=== PATIENT | female | born 1965 | race Caucasian/White ===

== ENCOUNTER 2020-01-23 02:57 | Observation (INO) | payer SELFPAY ==
[~2020-01-23] VITALS: Ht 167.6 cm; Wt 80.7 kg
[2020-01-23] MEDS ORDERED: LEVAQUIN750 MG PO (03:03)
[2020-01-23] MEDS ORDERED: LIPITOR20 MG PO (03:04)
[2020-01-23] MEDS ORDERED: COREG12.5 MG PO ×2 (03:04→05:08)
[2020-01-23] MEDS ORDERED: BAYER CHEWABLE81 MG PO (03:04)
[2020-01-23] MEDS ORDERED: PLAVIX75 MG PO (03:05)
[2020-01-23] MEDS ORDERED: KLONOPIN0.5 MG PO (03:05)
[2020-01-23] MEDS ORDERED: DEPAKOTE500 MG PO (03:05)
[2020-01-23] MEDS ORDERED: LASIX40 MG PO (03:08)
[2020-01-23] MEDS ORDERED: CARDURA1 MG PO (03:08)
[2020-01-23] MEDS ORDERED: FAMOTIDINE10 MG PO (03:08)
[2020-01-23] MEDS ORDERED: ISOSORBIDE MONO30 M1 PO (03:09)
[2020-01-23] MEDS ORDERED: SEROQUEL25 MG PO (03:09)
[2020-01-23] MEDS ORDERED: RANEXA1000 MG PO (03:09)
[2020-01-23] MEDS ORDERED: ATIVAN0.5 MG PO (03:10)
[2020-01-23] MEDS ORDERED: EFFEXOR25 MG PO (03:11)
[2020-01-23 08:34] VITALS: Ht 167.6 cm; Wt 80.7 kg
[2020-01-23 21:12] VITALS: BP 134/81
== END 2020-01-23 23:55 | disposition home or self-care (01) ==
LOC: D.ER 02:57 → D.M2 04:21 → OBSVTIME 04:21 → D.M2 04:21
PROVIDERS: ADMIT Family Medicine; ATTEND Family Medicine
DX: I25.110 Atherosclerotic heart disease of native coronary artery with unstable angina pectoris (principal); I42.9 Cardiomyopathy, unspecified; D64.9 Anemia, unspecified; J44.9 Chronic obstructive pulmonary disease, unspecified; Z86.73 Personal history of transient ischemic attack (TIA), and cerebral infarction without residual deficits; E78.5 Hyperlipidemia, unspecified; E11.65 Type 2 diabetes mellitus with hyperglycemia; M06.9 Rheumatoid arthritis, unspecified

== ENCOUNTER 2020-01-26 04:12 | Inpatient (IN) | payer MEDICAID ==
[2020-01-26] VITALS (11 sets, daily range): BP systolic 126–188; BP diastolic 64–106; BMI 29.3
[~2020-01-26] VITALS: Ht 167.6 cm; Wt 81.3 kg
--- NOTE | ~2020-01-26 | HEMODYNAMI ---
PATIENT:ROBYN MENJIVAR MEDICAL RECORD: [id number] : 65 LOCATION:D.MS [id number] ADMISSION DATE: 01/26/20 Generatedon:01/28/202010:21 Patient name: ROBYN MENJIVAR Patient #: [id number] SSN: [id number] : 1965 Date of study: 01/28/2020 Page: Of Hemodynamic Procedure Report Patient Data Patient Demographics Procedure consent was obtained First Name: ROBYN Gender: Female Last Name: OTTO : 1965 Middle Initial: E Age: 54 year(s) Patient #: [id number] Race: SSN: [id number] Additional ID: [id number] Contact details Address: [place] [address] State: [place] City: [place] Zip code: [address] Past Medical History Allergies Allergen Reaction Date Comments Reported Other 01/23/2020 PROVOCAL/TOMATOES/OXYCODONE allergy HCL(PERCOCET)/PENICILLINS/ SEE LIST Admission Admission Data Admission Date: 01/26/2020 Admission Time: 5:05 Arrival Date: 01/28/2020 Arrival Time: 5:05 Admit Source: Other Insurance Payor: Medicaid Room #: D.2202 [facility] #: [id number] Height (in.): 65.75 BSA: 1.91 (m2) Height (cm.): 167 BMI: 29.4 (kg/m2) Weight (lbs.): 180.78 Weight (kg.): 82 Lab Results Lab Result Date: 01/23/2020 Lab Result Time: 0:00 Biochemistry Name Units Result Min Max BUN mg/dl 15 --(--*-)-- 7 18 CK-MB ng/ml 0.9 --(*---)-- 0 3.6 Creatinine mg/dl 1 --(--*-)-- 0.6 1.3 eGFR ml/min 61.24135 *-(----)-- 90 120 NONAFRICAN Troponin l ng/ml 0.017 --(-*--)-- 0 0.06 CBC Name Units Result Min Max Hematocrit % 36.3 *-(----)-- 42 54 Hemoglobin g/dl 11.8 *-(----)-- 13.5 17.5 Procedure Procedure Types Cath Procedure Diagnostic Procedure JOCELYN Procedure Description Procedure Date Procedure Date: 01/28/2020 Procedure Start Time: 10:04 Procedure End Time: 10:14 Procedure Staff Name Function Brad Sesay MD Performing Physician Jacinta Rolon RT Monitor Ceasar Lacy RN Nurse Sarah Olvera Care Support Representative Zak Chamorro CRNA Additional personnel Procedure Data Cath Procedure Estimated blood loss: 5 ml Procedure Complications No complications Procedure Medications Medication Administration Route Dosage Oxygen etCO2 Nasal cannula 3 l/min Hurricaine Boncarbo P.O. 1 Sprays Refer to Anesthesia Notes for Sedation Medications 0.9% NaCl I.V. 50 ml/hr Hemodynamics Rest BSA: 1.91 (m2) HGB: 11.8 (g/dl) O2 Consumption: Estimated: 259.76 (ml/min) O2 Consumption indexed: Estimated:136 (ml/min/m) Snapshots Pre Cath Intra NCS Post Cath Vital Signs Time Heart Resp SPO2 etCO2 NIBP (mmHg) Rhythm Pain Sedation Rate (ipm) (%) (mmHg) Status Level (bpm) 10:02:22 104 18 94 0 130/86(113) NSR 0 (11) 10(A) , No pain 10:06:30 96 20 96 8.2 112/78(86) NSR 0 (11) 9(A) , No pain 10:10:30 99 12 99 36.7 122/85(97) NSR 0 (11) 9(A) , No pain 10:14:36 87 15 100 23.2 124/78(91) NSR 0 (11) 10(A) , No pain 10:18:13 83 26 99 38.9 118/73(85) NSR 0 (11) 10(A) , No pain Medications Time Medication Route Dose Verified Delivered Reason Notes Effectiv eness by by 10:00:59 0.9% NaCl I.V. 50 Brad Mcdonough Per ml/hr St Vin Lacy RN physician 10:04:11 Oxygen etCO2 3 Brad Mcdonough used for Nasal l/min St Vin Lacy RN procedure cannula 10:04:19 Hurricaine P.O. 1 Brad Mcdonough Per Boncarbo Sprays St Vin Lacy RN physician 10:04:23 Refer to Brad Mcdonough Anesthesia St Vin Lacy RN Notes for MD Sedation Medications Procedure Log Time Note 9:35:40 Informed consent obtained and on chart 9:35:45 Diagnostic Cath Status : Urgent 9:37:15 Arrival Date: 01/28/2020 5:05:00 AM 9:37:30 Admit Source: Other 9:37:34 Insurance Payor : Medicaid 9:37:46 Patient Height : 65.75 inches 9:37:49 Patient Weight : 180.78 lbs 9:37:58 Procedure Status JOCELYN. 9:38:00 Ceasar Lacy RN sent for patient. Start room use. 9:38:01 Time tracking: Regular hours (M-F 7:00 - 5:00) 9:38:05 Plan of Care:Hemodynamics will remain stable., Cardiac rhythm will remain stable., Comfort level will be maintained., Respiratory function will remain adequate., Patient/ family verbilizes understanding of procedure., Procedure tolerated without complication., Recovers from procedure without complications.. 9:56:30 Patient received from Med/Surg to CCL 2 Alert and oriented. Tansferred to table in Supine position. 9:56:31 Warm blankets applied, and ridge hugger turned on for patient comfort. 9:56:31 Correct patient and procedure confirmed by team. 9:56:32 ECG and BP/O2 sat monitors applied to patient. 10:00:46 Baseline sample Acquired. 10:00:46 Vital chart was started 10:00:54 Full Disclosure recording started 10:00:57 H&P Date Dictated: 01/28/2020 New H&P dictated by physician.. 10:00:59 0.9% NaCl 50 ml/hr I.V. was administered by Ceasar Lacy RN; Per physician; Verbal order read back and verified. 10:01:01 Pre-procedure instructions explained to patient. 10:01:02 Pre-op teaching completed and patient verbalized understanding. 10:01:04 Family unavailable. 10:01:05 Patient NPO since Midnight. 10:01:08 Is the patient allergic to Iodine/contrast media? No. 10:01:11 Was the patient premedicated? No 10:02:05 Is patient on blood thinner?No 10:02:06 Patient diabetic? No. 10:02:08 Previous problem with sedation/anesthesia? No ? 10:02:09 Snore? Yes 10:02:11 Sleep apnea? No 10:02:13 Deviated septum? No 10:02:14 Opens mouth fully? Yes 10:02:15 Sticks out tongue? Yes 10:02:20 Airway obstruction? Yes copd asthma 10:02:23 Dentures? No ? 10:02:31 Patient pain scale 0/10 ?. 10:02:35 IV patent on arrival in left forearm with 0.9% NaCl at [facility]. 10:02:39 Lab results completed and on chart. 10:02:45 Alarms reviewed by RStuart N. 10:02:46 Sharps counted by scrub and verified by R.N. 10:02:47 Physician arrived 10:02:48 --------ALL STOP TIME OUT------ 10:02:48 Final Timeout: patient, procedure, and site verified with staff and physician. All members of the team are in agreement. 10:02:59 Fire Safety Assessment: A--An alcohol-based skin anteseptic being used preoperatively., C--Open oxygen or nitrous oxide is being used., D--An ESU, laser, or fiber-optic light is being used. 10:03:03 Physical assessment completed. ASA score P 2 - A patient with mild systemic disease as per Bard Sesay MD. 10:03:07 Sedation plan: TIVA Medication:Propofol 10:03:22 Zak Chamorro CRNA present and monitoring patient for TIVA. 10:03:27 Sarah Olvera Commercial Journeyman Electrician present for JOCELYN. 10:04:10 Procedure started. 10:04:11 Oxygen 3 l/min etCO2 Nasal cannula was administered by Ceasar Lacy RN; used for procedure; Verbal order read back and verified. 10:04:11 JOCELYN started. 10:04:19 Hurricaine Boncarbo 1 Sprays P.O. was administered by Ceasar Lacy RN; Per physician; Verbal order read back and verified. 10:04:23 Refer to Anesthesia Notes for Sedation Medications was administered by Ceasar Lacy RN; ; Verbal order read back and verified. 10:12:50 JOCELYN completed. 10:13:20 Procedure ended.(Physican Out) 10:13:42 Sharps counted by scrub and verified by R.N. 10:13:45 Insertion/operative site no bleeding no hematoma. 10:13:50 Post procedure rhythm: unchanged. 10:13:53 Estimated blood loss: 5 ml 10:13:55 Post procedure instruction explained to patient.Patient verbalizes understanding. 10:13:55 Patient needs reinforcement of post procedure teaching. 10:14:01 Procedure and supply charges have been captured, reviewed, submitted and are correct. 10:14:07 Procedure Complication : No complications 10:14:10 Vital chart was stopped 10:14:27 JOCELYN Findings: other (see operative note) 10:14:28 Operative report dictated upon procedure completion. 10:14:29 See physician's report for complete and final results. 10:14:31 Report given to Med II. 10:14:34 Procedure ended. 10:14:34 Full Disclosure recording stopped 10:14:41 End room use (Document Last) Signature Audit [place] Stage Time Signature Unsigned Intra-Procedure 01/28/2020 Jacinta Rolon 10:21:00 AM RT(R) Intra-Procedure 01/28/2020 Ceasar Lacy RN 10:21:17 AM Intra-Procedure 01/28/2020 Brad Ruano 10:21:34 AM Vin [place] Signatures Performing Physician : Signature : Brad Sesay MD Date : Time : Monitor : Jacinta Rolon RT Signature : Date : Time : Nurse : Ceasar Lacy RN Signature : Date : Time : [place] [address] [place] [address]
[~2020-01-26 04:12] MED LIST: ATIVAN0.5 MG PO; BAYER CHEWABLE81 MG PO; CARDURA1 MG PO; COREG12.5 MG PO; DEPAKOTE500 MG PO; EFFEXOR25 MG PO; FAMOTIDINE10 MG PO; ISOSORBIDE MONO30 M1 PO; KLONOPIN0.5 MG PO; LASIX40 MG PO; LEVAQUIN750 MG PO; LIPITOR20 MG PO; PLAVIX75 MG PO; RANEXA1000 MG PO; SEROQUEL25 MG PO
[2020-01-26 04:39] LABS: BASOPHILS 0.1 % (0-2); EOSINOPHILS 2.3 % (0-7); HEMATOCRIT 35.9 % (36.0-48.0); HEMOGLOBIN 11.7 g/dL (12-16); IMMATURE GRANULOCYTES 0.2 % (0-5); LYMPHOCYTES 11.9 % (15-50); MCHC 32.6 g/dL (31.0-37.0); MCV 85.9 fL (80.0-100.0); MEAN PLATELET VOLUME 10.3 fL (7.4-10.4); MONOCYTES 6.5 % (2-11); PLATELET COUNT 140 10x3/uL (130-400); RBC 4.18 10x6/uL (4.00-5.40); RDW 14.6 % (11.5-14.5); WBC 8.7 10x3/uL (4.8-10.8)
[2020-01-26 04:48] LABS: CALC OSMOLALITY 285 mosm/kg (275-300); CARBON DIOXIDE 29.9 mmol/L (21.0-32.0); CHLORIDE - SERUM 102 mmol/L (98-107); CREATININE - SERUM 0.9 mg/dL (0.6-1.3); POTASSIUM - SERUM 3.5 mmol/L (3.5-5.1); SODIUM 137 mmol/L (136-145); UREA NITROGEN 14 mg/dL (7-18); eGFR NON AFRICAN AMERICAN 69 mL/min (90-120)
[2020-01-26 04:49] LABS: GLUCOSE 294 mg/dL (74-106)
[2020-01-26 04:56] LABS: INR 0.95 (0.85-1.17); PROTIME 12.7 SECONDS (11.6-15.0)
[2020-01-26 05:06] LABS: ALBUMIN 3.2 g/dL (3.4-5.0); ALKALINE PHOSPHATASE 215 U/L (30-120); ALT (SGPT) 53 U/L (10-68); BILIRUBIN - TOTAL 0.31 mg/dL (0.2-1.3); CKMB 1.6 U/L (0.0-3.6); CREATINE KINASE 44 UL (21-215); MAGNESIUM - SERUM 1.4 mg/dL (1.8-2.4); PROTEIN - SERUM 8.2 g/dL (6.4-8.2); THYROID STIMULATING HORMONE 18.44 uIU/mL (0.36-3.74); TROPONIN-I 0.017 ng/mL (0.000-0.060)
--- NOTE | 2020-01-26 05:24 | NUR ---
PT PLACED ON BIPAP RESP AT BEDSIDE
--- NOTE | 2020-01-26 06:19 | NUR ---
REC'D PATIENT AT 0605 FROM ER VIA STRECTHER. ON BIPAP AT 60%. DROWSY. NOT ANSWERING ALL QUESTIONS. LEFT SIDED WEAKNESS. PATIENT STATES SHE IS NOT ALLERGIC TO LISINOPRIL OR PROVOCHAL. A/O X 4.
--- NOTE | 2020-01-26 07:02 | NUR ---
PAGED DR. COLON FOR CONSULT
--- NOTE | 2020-01-26 07:16 | NUR ---
DR. COLON CALLED BACK, INFORMED OF CONSULT. [facility] REC'D.
--- NOTE | 2020-01-26 07:30 | NUR ---
REPORT RECEIVED. PT ADMITTED THIS MORNING. ON BIPAP AT 60%. RESTING QUIETLY. PT HAS IV TO LEFT FOREARM THAT IS SALINE LOCKED. PT GETS FSBS ACHS. VSS. WILL MONITOR. CALL LIGHT IN REACH.
--- NOTE | 2020-01-26 08:56 | NUR ---
PT STATED SHE HAD TO VOID. GOT ANGRY BECAUSE SHE DIDN'T WANT TO USE A BEDPAN AND IS UNABLE TO GET UP TO USE BEDSIDE COMMODE. EXPLAINED SHE COULDN'T D/T TO THE BIPAP AND HER CO2 LEVELS. PT BEGAN YELLING. STATED SHE WOULD NOT USE BEDPAN AND THAT SHE DIDN'T WANT TO "PEE ON HERSELF." TOLD HER WE COULD DO THE BEDPAN OR I COULD PLACE A CATHETER. SHE AGREED TO THE CATHETER. [address]. IMMEDIATE LIGHT YELLOW RETURN. SPECIMEN COLLECTED AND SENT TO LAB. PT THEN BEGAN YELLING ABOUT WANTING TO DRINK. EXPLAINED TO PT AND HER THAT SHE CAN'T DRINK WHILE ON THE BIPAP, THAT IT NEEDS TO CURRENTLY STAY ON AT ALL TIMES. AT THIS POINT, THE CONTINUES TO GIVE PT A DRINK OF WATER, THEN PROCEEDS TO TELL ME THAT HIS WILL RIP THE BIPAP OFF AND SOMEHOW GET TO THE SINK TO DRINK WATER FROM THERE IF HE DOES NOT LET HER HAVE DRINK. WILL CONTINUE TO MONITOR.
[2020-01-26 09:07] LABS: UDS - AMPHET NEGATIVE QUAL (NEGATIVE); UDS - BARB NEGATIVE QUAL (NEGATIVE); UDS - BENZO NEGATIVE QUAL (NEGATIVE); UDS - COCAINE NEGATIVE QUAL (NEGATIVE); UDS - OPIATE NEGATIVE QUAL (NEGATIVE); UDS - PCP NEGATIVE QUAL (NEGATIVE); UDS - THC NEGATIVE QUAL (NEGATIVE)
--- NOTE | 2020-01-26 09:11 | NUR ---
PT REFUSED TO LET THE US TECH DO HER CAROTID DOPPLERS AND ECHO. EXPLAINED THE IMPORTANCE OF THESE TESTS. PT REFUSED TO LET US TECH REPOSITION HER.
[2020-01-26 09:14] LABS: BILIRUBIN NEGATIVE (NEGATIVE); GLUCOSE 250 mg/dL (NEGATIVE); KETONE NEGATIVE (NEGATIVE); NITRITE NEGATIVE (NEGATIVE); SPECIFIC GRAVITY 1.005 (1.005-1.020); UROBILINOGEN NORMAL (NORMAL)
--- NOTE | 2020-01-26 10:43 | NUR ---
DR COLON ROUNDING ON PT.
--- NOTE | 2020-01-26 10:54 | NUR ---
ATTEMPTED TO START BREATHING TREATMENT ON PATIENT. WHEN I INFORMED PATIENT THAT THE DOCTOR HAS ORDERED SHE YELLED AT ME SHE WAS NOT GOING TO DO BECAUSE EVERY BREATHING TREATMENT MAKES HER ANTSY. PATIENT HAS BEEN NONCOMPLIANT WITH SEVERAL OTHER ORDERS. IS AWARE OF SITUATION
--- NOTE | 2020-01-26 11:00 | NUR ---
PT REFUSING ALL BREATHING TREATMENTS
--- NOTE | 2020-01-26 11:02 | NUR ---
FROM NEURO STANDPOINT, PT CAN TRANSFER OUT OF ICU (PER DR COLON).
--- NOTE | 2020-01-26 12:16 | NUR ---
DR DARY MONTOYA ON PT.
--- NOTE | 2020-01-26 12:25 | NUR ---
CAROTID DOPPLERS BEING DONE. DR FOOTE STATED PT CAN TRANSFER TO FLOOR FROM RESP PERSPECTIVE. RELAYED INFORMATION TO DR SANTAMARIA.
--- NOTE | 2020-01-26 14:15 | NUR ---
UPDATE GIVEN TO DR. COLON, NEW ORDERS RECIEVED
--- NOTE | 2020-01-26 14:52 | NUR ---
PT RECEIVED TO ROOM 2201 FROM ICU VIA W/C. RESP SHALLOW, PT VOICES "I'M A LITTLE SHORT OF BREATH." PT MOOD LIGHT, LAUGHING AND COMMUNICATING WITH STAFF. DENIES PAIN AT THIS TIME. SALINE LOC TO LEFT AC, SITE WITHOUT REDNESS OR EDEMA. F/C PATENT TO GRAVITY. ORIENTED TO ROOM, BED AND CALL LIGHT. CL WITHIN REACH. ENCOURAGED TO CALL WITH NEEDS.
--- NOTE | 2020-01-26 17:30 | NUR ---
PT C/O OF PAIN WITH F/C. F/C DISCONTINUED PER MD ORDERS. PT VOIDED AND HAD BM AFTER DISCONTINUING.
--- NOTE | 2020-01-26 17:33 | NUR ---
MUNOZ REMOVED. TOLERATED WELL. 9.5 RX FROM [facility]
--- NOTE | 2020-01-26 23:45 | NUR ---
CALLED RAPID RESPONSE. PATIENT COMPLAINING OF CHEST AND JAW PAIN, SOB. PT SITTING UP IN CHAIR VERY ANXCIOUS. BIPAP PLACED ON PT. STATES SHE CANT BREATH. PT STATES SHE IS ALERGIC TO NTG. ARA NOTIFIED. EKG DONE.
[2020-01-27] VITALS: BP 138/70
--- NOTE | 2020-01-27 | NUR ---
UZIEL BULLOCK NOTIFIED OF PATIENT HAVING CHEST PAIN. PATIENT STATES SHE IS ALLERGIC TO NTG, ARA AWARE. EKG ORDERED ALONG WITH CXR AND LAB. UZIEL BULLOCK STATED SHE WOULD BE BY TO SEE PATIENT.
[2020-01-27 00:42] LABS: CKMB 1.2 U/L (0.0-3.6); CREATINE KINASE 48 UL (21-215); PHENYTOIN (DILANTIN) 0.6 ug/mL (10.0-20.0)
[2020-01-27 00:44] LABS: TROPONIN-I < 0.017 ng/mL (0.000-0.060)
--- NOTE | 2020-01-27 03:40 | NUR ---
WENT TO GIVE PATIENT 0.5MG ATIVAN PO. PATIENT REFUSED TO TAKE IT AND STATED, "TAKE IT, I DON'T WANT THAT SHIT. CALL THE DOCTOR AND TELL HER I'M PISSED." WASTED THE 0.5MG TABLET OF ATIVAN.
[2020-01-27 04:40] VITALS: BP 143/87
[2020-01-27 06:48] LABS: BASOPHILS 0.3 % (0-2); EOSINOPHILS 2.7 % (0-7); HEMATOCRIT 33.2 % (36.0-48.0); HEMOGLOBIN 10.7 g/dL (12-16); IMMATURE GRANULOCYTES 0.3 % (0-5); LYMPHOCYTES 36.6 % (15-50); MCH 27.7 pg (26.0-34.0); MCHC 32.2 g/dL (31.0-37.0); MEAN PLATELET VOLUME 10.8 fL (7.4-10.4); MONOCYTES 6.4 % (2-11); NEUTROPHILS 53.7 % (40-80); PLATELET COUNT 122 10x3/uL (130-400); RBC 3.86 10x6/uL (4.00-5.40); WBC 6.6 10x3/uL (4.8-10.8)
--- NOTE | 2020-01-27 06:50 | NUR ---
ALERT AND ORIENTED, RESTING IN BED. C/O PAIN. NO S/S OF ACUTE DISTRESS NOTED. ON 3L O2, NC. USES BIPAP AT NIGHT. IV TO LEFT AC, SL. SITE PATENT WITHOUT REDNESS OR SWELLING. DENIES ANY NEEDS AT THIS TIME. CALL LIGHT IN REACH. WILL CONTINUE TO MONITOR.
[2020-01-27 07:01] LABS: T4 THYROXINE 8.9 ug/dL (4.7-13.3)
[2020-01-27 07:03] LABS: BILIRUBIN - TOTAL 0.38 mg/dL (0.2-1.3); CALCIUM 8.6 mg/dL (8.5-10.1); CARBON DIOXIDE 28.2 mmol/L (21.0-32.0); CREATININE - SERUM 1.1 mg/dL (0.6-1.3)
[2020-01-27 07:07] LABS: CKMB 0.9 U/L (0.0-3.6); CREATINE KINASE 37 UL (21-215); TROPONIN-I 0.019 ng/mL (0.000-0.060)
[2020-01-27 07:08] LABS: ANION GAP 12.9 mmol/L (8-16); POTASSIUM - SERUM 4.1 mmol/L (3.5-5.1)
[2020-01-27 08:02] VITALS: BP 150/97
[2020-01-27 12:37] VITALS: BP 140/93
[2020-01-27 13:46] LABS: CKMB 0.9 U/L (0.0-3.6); CREATINE KINASE 35 UL (21-215); TROPONIN-I 0.021 ng/mL (0.000-0.060)
[2020-01-27 14:19] VITALS: Ht 167.6 cm; Wt 81.3 kg
[2020-01-27 17:03] VITALS: BP 127/79
--- NOTE | 2020-01-27 18:36 | NUR ---
I have reviewed this patient and I concur with the Shift Assessment completed by the Licensed Practical Nurse today this shift.
--- NOTE | 2020-01-27 18:44 | NUR ---
ALERT AND ORIENTED. C/O PAIN. GAVE DILAUDID FOR PAIN. NO S/S OF ACUTE DISTRESS NOTED. DENIES ANY NEEDS AT THIS TIME. CALL LIGHT IN REACH. WILL CONTINUE TO MONITOR.
--- NOTE | 2020-01-27 19:35 | NUR ---
A&O X 4. AMBULATES ADLIB. PT REPORTS MILD DYSPNEA. PAIN 9/10. AT BEDSIDE SCDs IN USE, CL IN REACH, CTM.
[2020-01-27 20:00] VITALS: BP 124/77
[2020-01-28] VITALS: BP 129/81
--- NOTE | 2020-01-28 02:47 | NUR ---
I have reviewed this patient and I concur with the Shift Assessment completed by the Licensed Practical Nurse today this shift.
[2020-01-28 04:00] VITALS: BP 128/87
[2020-01-28 04:24] LABS: BASOPHILS 0.2 % (0-2); EOSINOPHILS 5.1 % (0-7); HEMATOCRIT 34.6 % (36.0-48.0); IMMATURE GRANULOCYTES 0.3 % (0-5); LYMPHOCYTES 34.1 % (15-50); MCH 27.4 pg (26.0-34.0); MCHC 31.8 g/dL (31.0-37.0); MCV 86.3 fL (80.0-100.0); MEAN PLATELET VOLUME 10.8 fL (7.4-10.4); MONOCYTES 7.2 % (2-11); NEUTROPHILS 53.1 % (40-80); PLATELET COUNT 126 10x3/uL (130-400); RBC 4.01 10x6/uL (4.00-5.40); WBC 6.7 10x3/uL (4.8-10.8)
[2020-01-28 04:47] LABS: ANION GAP 10.1 mmol/L (8-16); BILIRUBIN - TOTAL 0.54 mg/dL (0.2-1.3); CALCIUM 8.5 mg/dL (8.5-10.1); CARBON DIOXIDE 30.2 mmol/L (21.0-32.0); CREATININE - SERUM 1.2 mg/dL (0.6-1.3); POTASSIUM - SERUM 4.3 mmol/L (3.5-5.1); PROTEIN - SERUM 7.5 g/dL (6.4-8.2)
[2020-01-28 09:14] VITALS: BP 126/76
[2020-01-28 13:11] LABS: IMMUNOGLOBULIN A 595 mg/dL (87-352); IMMUNOGLOBULIN G 1355 mg/dL (586-1602)
[2020-01-28 13:59] VITALS: BP 114/77
--- NOTE | 2020-01-28 14:20 | MORECARE ---
CASE MANAGEMENT DISCHARGE SUMMARY PATIENT: ROBYN MENJIVAR UNIT: [id number] ADM DATE: 01/26/20 AGE: 54 : 65 SEX: F ROOM/BED: D.2202 AUTHOR: SHANIQUE VEGA PHYSICIAN: REFERRING PHYSICIAN: FELICIA JOHNSTON MD DATE OF SERVICE: 01/28/20 Discharge Plan Patient Name: ROBYN MENJIVAR Facility: [facility]:[place] : 1965 Planned Disposition: Home or Self Care Anticipated Discharge Date: Discharge Date: Expected LOS: Initial Reviewer: [email or web address] Initial Review Date: 01/26/2020 Generated: 01/28/20 3:20 pm Patient Name: ROBYN MENJIVAR Page [phone] at 1420 All edits/amendments must be made on the electronic document DICTATION DATE: 01/28/20 142 LOCUM TENENS PSYCHIATRIST: MONO 01/28/20 1420 RPT#: [id number] DC DATE: STATUS: ADM IN [facility] [address] [place] [address] END OF REPORT
--- NOTE | 2020-01-28 14:29 | MORECARE ---
CASE MANAGEMENT DISCHARGE SUMMARY PATIENT: ROBYN MENJIVAR UNIT: [id number] ADM DATE: 01/26/20 AGE: 54 : 65 SEX: F ROOM/BED: D.2202 AUTHOR: SHANIQUE VEGA PHYSICIAN: REFERRING PHYSICIAN: FELICIA JOHNSTON MD DATE OF SERVICE: 01/28/20 Discharge Plan Patient Name: ROBYN MENJIVAR Facility: [facility]:[place] : 1965 Planned Disposition: Home or Self Care Anticipated Discharge Date: Discharge Date: Expected LOS: Initial Reviewer: [email or web address] Initial Review Date: 01/26/2020 Generated: 01/28/20 3:29 pm DCPIA - Discharge Planning Initial Assessment Updated by [email or web address]: Annette Whitfield on 01/28/20 2:28 pm * Is the patient Alert and Oriented? Yes * How many steps to enter\exit or inside your home? * PCP NONE * Pharmacy [facility] * Preadmission Environment Home with Family * ADLs Independent * Equipment Other Oxygen * Other Equipment PORTABLE AND CONCENTRATOR FROM [facility] * List name and contact numbers for known caregivers / representatives who currently or will assist patient after discharge: KYLE (SPOUSE) [phone] * Verbal permission to speak to the caregivers and representatives has been obtained from the patient. N/A * Community resources currently utilized None * Additional services required to return to the preadmission environment? Yes * Can the patient safely return to the preadmission environment? Yes * Has this patient been hospitalized within the prior 30 days at any hospital? Yes External Providers External [facility] Next Contact Date: Service Request Date: Service Type: Resolution: Reviewer: Comments: Last DP export: 01/28/20 1:20 p Patient Name: ROBYN MENJIVAR Page [phone] at 1429 All edits/amendments must be made on the electronic document DICTATION DATE: 01/28/20 142 FIBER GLASS WORKER: MONO 01/28/20 142 RPT#: [id number] DC DATE: STATUS: ADM IN [facility] [address] [place] [address] END OF REPORT
--- NOTE | 2020-01-28 14:46 | MORECARE ---
CASE MANAGEMENT DISCHARGE SUMMARY PATIENT: ROBYN MENJIVAR UNIT: [id number] ADM DATE: 01/26/20 AGE: 54 : 65 SEX: F ROOM/BED: D.2202 AUTHOR: SHANIQUE VEGA PHYSICIAN: REFERRING PHYSICIAN: FELICIA JOHNSTON MD DATE OF SERVICE: 01/28/20 Discharge Plan Patient Name: ROBYN MENJIVAR Facility: [facility]:[place] : 1965 Planned Disposition: Home or Self Care Anticipated Discharge Date: Discharge Date: Expected LOS: Initial Reviewer: [email or web address] Initial Review Date: 01/26/2020 Generated: 01/28/20 3:45 pm Comments DCP- Discharge Planning Updated by [email or web address]: Annette Whitfield on 01/28/20 1:[address] Patient Name: ROBYN MENJIVAR Admission Status: ER Accout number: [id number] Admission Date: 01-26-2020 : 1965 Admission Diagnosis:TRANSIENT CEREBRAL ISCHEMIC ATTACK, UNSPECIFIED Attending: FELICIA JOHNSTON Current LOS: 2 Anticipated DC Date: Planned Disposition: Home or Self Care Primary Insurance: MEDICAID [place] Discharge Planning Comments: CM met with patient to complete initial dc planning assessment. CM educated patient on the CM role and verbal consent given by patient to complete assessment. Patient lives at home with her spouse. They are from [facility]. At discharge patient plans to return home and feels this is a safe discharge. CM discussed availability of home health, rehab services, and medical equipment. She stated that she does not have a PCP. She has home O2, Concentrator from [facility]. I have sent them clinical trying to get her set up with a bipap/cpap/triliogy, I spoke with Sharmila at [facility]. She will need transportation home. She did not realize that she qualifies for [employer]. I called critical access hospital and spoke with miguel Loving and the patient does qualify for Transportation and they will be the one to take them home. (her spouse will also need transportation) . The Address that is on her facecheet is a PO box. The patient and spouse stated that the physical address is [address] [place] [id number]. A good telephone number for them is [phone]. Patient denied known discharge needs at this time. CM will continue to follow and will assist as needed with dc plans/needs. Pasteurizing Supervisor: Annette Whitfield DCPIA - Discharge Planning Initial Assessment Updated by [email or web address]: Annette Whitfield on 01/28/20 2:28 pm * Is the patient Alert and Oriented? Yes * How many steps to enter\exit or inside your home? * PCP NONE * Pharmacy [facility] * Preadmission Environment Home with Family * ADLs Independent * Equipment Other Oxygen * Other Equipment PORTABLE AND CONCENTRATOR FROM [facility] * List name and contact numbers for known caregivers / representatives who currently or will assist patient after discharge: KYLE (SPOUSE) [phone] * Verbal permission to speak to the caregivers and representatives has been obtained from the patient. N/A * Community resources currently utilized None * Additional services required to return to the preadmission environment? Yes * Can the patient safely return to the preadmission environment? Yes * Has this patient been hospitalized within the prior 30 days at any hospital? Yes Coverage Notice Reviewer: [id number] - Annette Whitfield Notice Issued Date-Time: 01/28/2020 14:00 Notice Type: Patient Choice Letter Notice Delivered To: Patient Relationship to Patient: Fiscal Specialist Name: Delivery Method: HAND - Hand Delivered Kimberly Days: Prior Verbal Notification: Recipient Understood Notice: Yes Recipient Signature: Yes Med Rec Note Co-signed by Attending: Coverage Notice Comment: [facility] Last DP export: 01/28/20 1:29 p Patient Name: ROBYN MENJIVAR Page [phone] at 1446 All edits/amendments must be made on the electronic document DICTATION DATE: 01/28/20 1445 PHYSICIST ASTROPHYSICS: MONO 01/28/20 1445 RPT#: [id number] DC DATE: STATUS: ADM IN [facility] [address] [place] [address] END OF REPORT
[2020-01-28 17:10] VITALS: BP 132/80
[2020-01-28 20:00] VITALS: BP 124/75
--- NOTE | 2020-01-28 23:00 | NUR ---
ENTERED ROOM IN RESPONSE TO CALL LIGHT. A&O X 4. REPORTS SEVERE CHESTPAIN AFTER JUST AMBULATING TO THE RESTROOM. TELEMETRY READING 82 NORMAL SINUS. BP 138/81, SPO2 99% ON 4L. PT SOB, DENIES ANXIETY AND REFUSING PRN ANXIETY MEDICATION, INSISTS SHE NEEDS MORE PAIN MEDICATION, STATES SHE USUALLY NEEDS DILAUDID WHILE HOSPITALIZED. ARA TRIPLETT PAGED AND NOTIFIED. INFORMED PT OF INCREASE IN PRN MORPHINE DOSE, WHEN SHE CAN HAVE IT NEXT. PT APPEARS TO BE CALMING DOWN. CTM.
--- NOTE | 2020-01-28 23:23 | NUR ---
DISCUSSED BENEFITS OF BIPAP COMPLIANCE HOWEVER PT CONTINUES TO STATE PRESSURE FROM DIVICE CAUSES PAIN IN HER CHEST NURSE NOTIFIED NASAL CANNULA IN PLACE
[2020-01-29] VITALS: BP 136/81
[2020-01-29 04:00] VITALS: BP 127/73
[2020-01-29 04:46] LABS: HEMATOCRIT 32.4 % (36.0-48.0); HEMOGLOBIN 10.6 g/dL (12-16); LYMPHOCYTES 36.9 % (15-50); MCH 28.2 pg (26.0-34.0); MCHC 32.7 g/dL (31.0-37.0); MCV 86.2 fL (80.0-100.0); MEAN PLATELET VOLUME 10.2 fL (7.4-10.4); NEUTROPHILS 53.1 % (40-80); RBC 3.76 10x6/uL (4.00-5.40); RDW 15.1 % (11.5-14.5); WBC 5.2 10x3/uL (4.8-10.8)
[2020-01-29 04:48] LABS: PLATELET COUNT 77 10x3/uL (130-400)
[2020-01-29 05:01] LABS: ANION GAP 7.4 mmol/L (8-16); BILIRUBIN - TOTAL 0.41 mg/dL (0.2-1.3); CALCIUM 8.6 mg/dL (8.5-10.1); CARBON DIOXIDE 31.7 mmol/L (21.0-32.0); CREATININE - SERUM 1.2 mg/dL (0.6-1.3); POTASSIUM - SERUM 4.1 mmol/L (3.5-5.1); PROTEIN - SERUM 7.1 g/dL (6.4-8.2)
--- NOTE | 2020-01-29 07:15 | NUR ---
SHIFT REPORT RECEIVED. KYLE IN BED WITH PATIENT. NO NEEDS AT THIS TIME. NPO FOR A PROCEDURE. CL IN REACH. WCTM
[2020-01-29 09:12] VITALS: BP 123/78
[2020-01-29 10:11] LABS: IGG SUBCLASS 1 661 mg/dL (248-810); IGG SUBCLASS 2 630 mg/dL (130-555); IGG SUBCLASS 3 90 mg/dL (15-102); IGG SUBCLASS 4 62 mg/dL (2-96); IGGS - IGG SERUM 1561 mg/dL (586-1602)
--- NOTE | 2020-01-29 11:06 | NUR ---
Nutrition follow-up/consult: Visited with pt re: consistent CHO diet Pt states she is not a diabetic and never has been. Pt with fairly well controlled glucose. Pt reports high glucose from steroids. I advised pt even if glucose was elevated due to steroids, I still had to follow diabetic diet protocol to prevent it from going higher. Pt states she loves sweets and is going to continue to eat them. I advised pt that the kitchen would not send sweets or sugary foods; however, I cannot stop her from getting them on her own. Pt with good po intake at this time Labs reviewed Pt continues to receive a consistent CHO diet and RDN will work with pt on food preferences. Wt: 180# RDN following.
[2020-01-29 13:20] VITALS: BP 111/76
--- NOTE | 2020-01-29 14:47 | NUR ---
PIV TO LEFT FA REMOVED WITH CATHETER TIP INTACT. DRESSING APPLIED. 22G PIV INSERTED TO RIGHT UPPER ARM X 1 ATTEMPT. PT TOLERATED WELL. BED IS IN THE LOWEST POSITION. CALL LIGHT AND BEDSIDE TABLE ARE WITHIN REACH. SIDE RAILS X 2. PT DENIES FURTHER NEEDS. WILL NOTIFY SHIFT NURSE OF PIV INSERTION.
--- NOTE | 2020-01-29 15:55 | NUR ---
PATIENT HAS HAD SHOWER. REAPPLIED TELEMETRY. REQUESTED AND RECEIVED PAIN MEDS PER EMAR. CL IN REACH. DELMAR IN BED WITH PATIENT. ALEXIA
[2020-01-29 16:45] VITALS: BP 94/61
--- NOTE | 2020-01-29 19:20 | NUR ---
1849 KYLE CAME OUT TO NURSES STATION STATING WAS HAVING A SEIZURE. Azalea DECKER RN AND I RESPONDED. WHEN WE WENT INTO THE ROOM THE PATIENT WAS CONFUSED BUT ALERT AND TALKING. KYLE STATED THAT SHE WAS ASLEEP AND JUST STARTED JERKING LIKE CRAZY AND TRYING TO SAY HIS NAME. THEN WAS ABLE TO SAY NURSE. PATIENT WAS CONFUSED AND COULDN'T RECITE HER ENTIRE BIRTHDAY OR NAME. PATIENT WAS ANXIOUS AND BECOMING SOB DUE TO ANXIETY DOING BREATHING TECHNIQUES WITH STAFF ENCOURAGEMENT. PATIENT STARTED TO PRESENT WITH JERKING LIKE MOVEMENTS CONSISTENT WITH SEIZURE ACTIVITY. HER EYES ROLLED BACK IN HER HEAD WELL. ORDER OBTAINED FOR [address] COLON WHO IS ON HER CASE WELL ON THE FLOOR AT THIS TIME. ADMINISTERED IV PER EMAR. AFFECTIVE IMMEDIATELY. PATIENT STOPPED WITH JERKING MOVEMENTS, ABLE TO GIVE NAME, , AND TALKING APPROPRIATELY BEFORE BEING OVERTAKEN BY SLEEP. VS REMAINED STABLE DURING THIS TIME. KYLE AT BEDSIDE. CL IN REACH. [facility]
[2020-01-29 20:00] VITALS: BP 143/80
--- NOTE | 2020-01-29 20:00 | NUR ---
PATIENT RESTING IN BED WITH FAMILY AT BEDSIDE. NO S/S OF ACUTE DISTRESS. NO C/O AT THIS TIME. PATIENT IS ON 3L NASAL CANNULA. PATIENT IS ON TELEMETRY: 71 NORMAL SINUS. PATIENT HAS IV IN THE RIGHT UPPER ARM SALINE LOC. IV IS PATENT WITHOUT REDNESS, SWELLING, OR TENDERNESS. PATIENT IS LETHARGIC FROM ATIVAN DOSE FROM PRIOR ZURE ACTIVITY. PATIENT IS A STAND BY ASSIST TO THE BATHROOM. CALL LIGHT WITHIN REACH. WILL CONTINUE TO MONITOR.
--- NOTE | 2020-01-29 22:58 | NUR ---
I have reviewed this patient and I concur with the Shift Assessment completed by the Licensed Practical Nurse today this shift.
[2020-01-30] VITALS: BP 115/73
[2020-01-30 04:00] VITALS: BP 134/84
[2020-01-30 06:14] LABS: BASOPHILS 0.2 % (0-2); HEMOGLOBIN 10.3 g/dL (12-16); IMMATURE GRANULOCYTES 0.4 % (0-5); MCH 28.1 pg (26.0-34.0); MCHC 32.2 g/dL (31.0-37.0); MCV 87.4 fL (80.0-100.0); MEAN PLATELET VOLUME 10.9 fL (7.4-10.4); MONOCYTES 6.5 % (2-11); NEUTROPHILS 56.9 % (40-80); PLATELET COUNT 83 10x3/uL (130-400); RBC 3.66 10x6/uL (4.00-5.40); RDW 15.1 % (11.5-14.5); WBC 5.5 10x3/uL (4.8-10.8)
[2020-01-30 06:31] LABS: PLATELET ESTIMATE DECREASED
[2020-01-30 06:38] LABS: ANION GAP 7.8 mmol/L (8-16); BILIRUBIN - TOTAL 0.45 mg/dL (0.2-1.3); CALCIUM 8.9 mg/dL (8.5-10.1); CARBON DIOXIDE 31.3 mmol/L (21.0-32.0); CREATININE - SERUM 1.2 mg/dL (0.6-1.3); POTASSIUM - SERUM 4.1 mmol/L (3.5-5.1); PROTEIN - SERUM 7.1 g/dL (6.4-8.2)
--- NOTE | 2020-01-30 07:40 | NUR ---
PT LYING IN BED WITH SIGNIFICANT OTHER, IV IN RT UPPER ARM SL, PT HAS NC ON AT 3L, CL IN REACH, NO S/SX OF DISTRESS, EASILY AWAKENED FOR ASSESSMENT. LUNGS CTA, HR 78 SR PER MONITORS. ACTIVE BOWEL SOUNDS, PEDAL PULSE PALPABLE, NO NEEDS VOICED AT THIS TIME BY PT OR OTHER. WILL ASSUME PT CARE
--- NOTE | 2020-01-30 08:00 | NUR ---
ADMINISTERED PRN PAIN MEDICATION, PER PT CHEST HURTS, PT IS SITTING UP LAUGHING WITH SPOUSE, ADMINISTERED PRN MEDICATION WITH MORNING MEDS. NO OTHER NEEDS AT THIS TIME. CONTINUE WITH PLAN OF CARE
--- NOTE | 2020-01-30 08:51 | TEE ---
PATIENT:ROBYN MENJIVAR MEDICAL RECORD: [id number] LOCATION:[facility] AGE OF PATIENT: 54 ADMISSION DATE: 01/26/20 SEX: F REFERRING PHYSICIAN: INTERPRETING PHYSICIAN: NOEMY HAMMONDS MD TRANSESOPHAGEAL ECHOCARDIOGRAM Date: 01/28/20 JOCELYN CHARGE Y INDICATIONS: POSSIBLE RUPUTURED CHORDAE PREMEDICATIONS: PATIENT'S RESPONSE PROCEDURE DOPPLER MEASUREMENTS: LVIT LA PA 110 RA LVOT 103 RVOT 68 Asc. Ao 154 AV Gradient Peak 9.5 AV Mean 5.2 AV Area 1.5 MV Gradient Peak 13.1 MV Mean 5.1 MV Area INTERPRETATION: Doppler: 2-D: COLOR FLOW DOPPLER NORMAL SALINE STUDY: MISCELLANOUS: DIAGNOSIS: PLAN: Cover Stripper:3 Dr. Day Alteration Worker: Adamaris LIVINGSTON COMMENTS: PACS DATE OF SERVICE: 01/28/2020 PROCEDURE: Transesophageal Note DESCRIPTION OF PROCEDURE: After general sedation via TIVA via anesthesia, transesophageal Omniplane probe was placed in esophagus and proximal stomach without difficulty. LVH is present. LV internal dimensions appear upper limits of normal. LV is TRANSESOPHAGEAL ECHOCARDIOGRAM REPORT [id number] ROBYN MENJIVAR mildly globally hypo. EF is 45% to 50%. Aortic valve is tricuspid. Trivial AI by color flow imaging but good valve excursion. Left atrium appears normal. Left atrial appendage is well visualized with good contractility. Mitral valve shows almost rheumatic changes of the anterior leaflet, although this could be an atypical prolapse or healed vegetation. Multiple views were taken in this area. There is moderate severe MR at this point. Right-sided chambers appear grossly normal. Moderate TR, as seen on transthoracic views. Systolic pressures are elevated at greater than or equal to 45 mmHg. At the end of procedure, the patient had transesophageal Omniplane probe was turned posteriorly. This showed no atherosclerotic debris in the descending aorta. At the end of the procedure, the patient was monitored continuously, pulse oximetry and telemetry and blood pressure monitoring. TRANSINT:[id number] Voice Confirmation ID: [id number] DOCUMENT ID: [id number] at [id number] CC: [id number] DICTATION DATE: 01/28/20 1051 RENOVATOR MACHINE OPERATOR: 01/28/20 2146 ADM IN [facility] [id number] [place] [address]
[2020-01-30 09:08] VITALS: BP 116/74
[2020-01-30 12:15] VITALS: BP 109/59
--- NOTE | 2020-01-30 12:22 | NUR ---
I have reviewed this patient and I concur with the Shift Assessment completed by the Licensed Practical Nurse today this shift.
--- NOTE | 2020-01-30 12:37 | NUR ---
PT REQUESTED PRN PAIN MEDICATION, ADMINISTERED WITH SCHEDULED NMEDICATION, PT LYING IN BED WITH SIGNIFICANT OTHER, DOUBLE PORTION LUNCH ON TRAY NEXT TO BED, NO S/SX OF DISTRESS, CONTINUE WITH PLAN OF CARE
--- NOTE | 2020-01-30 14:46 | NUR ---
PT SIGNIFICANT OTHER AT NURSING STATION ASKING TO SPEAK WITH CARDIOLOGY, ASSURED THEM THAT WHEN I SEE DRS I WILL RELAY MESSAGE THAT THEY WOULD LIKE TO SPEAK WITH SOMEONE. NO OTHER NEEDS AT THIS TIME. CONTINUE WITH PLAN OF CARE
[2020-01-30 16:59] VITALS: BP 106/73
--- NOTE | 2020-01-30 18:14 | MORECARE ---
CASE MANAGEMENT DISCHARGE SUMMARY PATIENT: ROBYN MENJIVAR UNIT: [id number] ADM DATE: 01/26/20 AGE: 54 : 65 SEX: F ROOM/BED: D.2202 AUTHOR: GARY,DOC PHYSICIAN: REFERRING PHYSICIAN: FELICIA JOHNSTON MD DATE OF SERVICE: 01/30/20 Discharge Plan Patient Name: ROBYN MENJIVAR Facility: [facility]:[place] : 1965 Planned Disposition: Home or Self Care Anticipated Discharge Date: Discharge Date: Expected LOS: Initial Reviewer: [id number] Initial Review Date: 01/26/2020 Generated: 01/30/20 7:14 pm Comments DCP- Discharge Planning Updated by [email or web address]: Kelly Luong on 01/30/20 5:[address] DISCUSSED IN IDT MEETING. CARDIOVASCULAR SURGEON AND [place] FARMER DISCUSSING PLAN. MVR WORKUP IN PROCESS. D/C PLAVIX AND INCREASE LOVENOX. DR FOOTE ROUNDED THIS PM. STABLE FROM PULMONARY VIEW FOR SURGERY NEXT WEEK. CM SPOKE W/ [facility] X[facility]. OFERED REFAX BY SHARMILA SALOMON [facility] DID NOT REC PREVIOUS FAX FROM [facility]. REC CB THIS LATE PM AND FAX STILL NOT RECEIVED. REC MD ORDER COPY VIA FAX. PLACED ON CHART FOR SIGNATURE. NOTE LEFT FOR WEEKEND FIBER TECHNOLOGIST TO OBTAIN SIGNATURE AGAIN TO REFAX. CANNOT LOCATE INITIAL SIGNED ORDER. DCP- Discharge Planning Updated by [email or web address]: Annette Whitfield on 01/28/20 1:[address] Patient Name: ROBNY MENJIVAR Admission Status: ER Accout number: [id number] Admission Date: 01-26-2020 : 1965 Admission Diagnosis:TRANSIENT CEREBRAL ISCHEMIC ATTACK, UNSPECIFIED Attending: FELICIA JOHNSTON Current LOS: 2 Anticipated DC Date: Planned Disposition: Home or Self Care Primary Insurance: MEDICAID [place] Discharge Planning Comments: CM met with patient to complete initial dc planning assessment. CM educated patient on the CM role and verbal consent given by patient to complete assessment. Patient lives at home with her spouse. They are from [facility]. At discharge patient plans to return home and feels this is a safe discharge. CM discussed availability of home health, rehab services, and medical equipment. She stated that she does not have a PCP. She has home O2, Concentrator from [facility]. I have sent them clinical trying to get her set up with a bipap/cpap/triliogy, I spoke with Sharmila at [facility]. She will need transportation home. She did not realize that she qualifies for [facility]. I called [facility] and spoke with a Fabienne and the patient does qualify for Transportation and they will be the one to take them home. (her spouse will also need transportation) . The Address that is on her facecheet is a PO box. The patient and spouse stated that the physical address is [address] [place] [address] [place] [address]. A good telephone number for them is [phone]. Patient denied known discharge needs at this time. CM will continue to follow and will assist as needed with dc plans/needs. News Intern: Annette Whitfield DCPIA - Discharge Planning Initial Assessment Updated by [id number]: Annette Whitfield on 01/28/20 2:28 pm * Is the patient Alert and Oriented? Yes * How many steps to enter\exit or inside your home? * PCP NONE * Pharmacy [facility] * Preadmission Environment Home with Family * ADLs Independent * Equipment Other Oxygen * Other Equipment PORTABLE AND CONCENTRATOR FROM [facility] * List name and contact numbers for known caregivers / representatives who currently or will assist patient after discharge: KYLE (SPOUSE) [phone] * Verbal permission to speak to the caregivers and representatives has been obtained from the patient. N/A * Community resources currently utilized None * Additional services required to return to the preadmission environment? Yes * Can the patient safely return to the preadmission environment? Yes * Has this patient been hospitalized within the prior 30 days at any hospital? Yes Coverage Notice Reviewer: [id number] - Annette Whitfield Notice Issued Date-Time: 01/28/2020 14:00 Notice Type: Patient Choice Letter Notice Delivered To: Patient Relationship to Patient: Darklight Inspector Name: Delivery Method: HAND - Hand Delivered Kimberly Days: Prior Verbal Notification: Recipient Understood Notice: Yes Recipient Signature: Yes Med Rec Note Co-signed by Attending: Coverage Notice Comment: [facility] Last DP export: 01/28/20 1:46 p Patient Name: ROBYN MENJIVAR Page [id number] at 1814 All edits/amendments must be made on the electronic document DICTATION DATE: 01/30/201813 CIRCUIT BREAKER ASSEMBLER: MONO 01/30/201813 RPT#: [id number] DC DATE: STATUS: ADM IN [facility] [address] [place] [address] END OF REPORT
[2020-01-30 20:00] VITALS: BP 125/82
--- NOTE | 2020-01-30 20:00 | NUR ---
PATIENT RESTING IN BED WITH FAMILY AT BEDSIDE. NO S/S OF ACUTE DISTRESS. PATIENT C/O ITCHINESS ALL OVER BODY. THERE IS NO RASH THAT I CAN SEE ANYWHERE. ATIVAN WAS GIVEN. PATIENT IS ON 3L OF O2 NASAL CANNULA. IS ON TELEMETR: 74 SINUS RYTHM. PATIENT HAS RIGHT UPPER ARM IV, SALINE LOC. IV IS PATENT WITHOUT REDNESS, SWELLING, OR TENDERNESS. PATIENT IS A STAND-BY ASSIST TO THE BATHROOM. CALL LIGHT WITHIN REACH. WILL CONTINUE TO MONITOR.
--- NOTE | 2020-01-31 03:46 | NUR ---
I have reviewed this patient and I concur with the Shift Assessment completed by the Licensed Practical Nurse today this shift.
[2020-01-31 04:00] VITALS: BP 139/77
[2020-01-31 05:50] LABS: BASOPHILS 0.2 % (0-2); EOSINOPHILS 3.3 % (0-7); HEMATOCRIT 32.2 % (36.0-48.0); HEMOGLOBIN 10.2 g/dL (12-16); IMMATURE GRANULOCYTES 0.4 % (0-5); LYMPHOCYTES 37.5 % (15-50); MCH 27.6 pg (26.0-34.0); MCHC 31.7 g/dL (31.0-37.0); MEAN PLATELET VOLUME 10.4 fL (7.4-10.4); NEUTROPHILS 51.6 % (40-80); PLATELET COUNT 77 10x3/uL (130-400); RDW 15.2 % (11.5-14.5); WBC 5.4 10x3/uL (4.8-10.8)
[2020-01-31 06:24] LABS: ALBUMIN 2.9 g/dL (3.4-5.0); ANION GAP 9.8 mmol/L (8-16); BILIRUBIN - TOTAL 0.34 mg/dL (0.2-1.3); CALCIUM 8.7 mg/dL (8.5-10.1); CARBON DIOXIDE 30.3 mmol/L (21.0-32.0); CREATININE - SERUM 1.1 mg/dL (0.6-1.3); POTASSIUM - SERUM 4.1 mmol/L (3.5-5.1); PROTEIN - SERUM 6.9 g/dL (6.4-8.2)
--- NOTE | 2020-01-31 07:28 | NUR ---
PT LYING IN BED WITH SIGNIFICANT OTHER, EASILY AWAKENED FOR ASSESSMENT, IV IN RT UPPER ARM SL, PT WEARING NC AT 3L. STATES PAIN IS STILL AT A 4, PRN PAIN MEDS ADMINISTERED ABOUT 2 HOURS AGO. CL IN REACH, PT STATED SHE WAS "ITCHING REAL BAD LAST NIGHT" HAD BENADRYL AND ATIVAN TO CONTROL ITCHING PT STATED IT HELPED BUT SHE STILL WAS "ITCHING LIKE CRAZY" NO NEEDS VOICED AT THIS TIME. CONTINUE WITH PLAN OF CARE
[2020-01-31 07:54] VITALS: BP 140/90
[2020-01-31 09:10] LABS: CA 27-29 16.2 U/mL (0.0-38.6)
--- NOTE | 2020-01-31 10:01 | NUR ---
PT C/O CP THAT IS WORSE TODAY THAN HAS BEEN BUT SAME TIGHTNESS IN CHEST. PER THOM GIVE 1 TIME DOSE OF MORPHINE WITH BENEDRYL NOW AND CONTACT CARDIO. EKG SHOWS NSR AT 84. CONTINUE WITH PLAN OF CARE
--- NOTE | 2020-01-31 10:14 | NUR ---
ADMINISTERED PRN BENADRYL AND MORPHINE AND PT STATED IT OCAMPO. PT IV FLUSHED BEFORE PUSHING, FELT AT TIP IF IV SITE AND PT HAS KNOT IN AREA, PT STATED SHE IS A VERY HARD STICK AND WOULD LIKE TO HAVE MIDLINE OR PICC. PLACED ORDER FOR VASCULAR ACCESS NURSE
--- NOTE | 2020-01-31 11:11 | NUR ---
PT LYING ON LEFT SIDE ASLEEP, PLACED ITEMS IN ROOM TO RESTART IV, EXPLAINED TO PT SIGNIFICANT OTHER THAT I AM NOT GOING TO WAKE HER NOW SINCE HER MORNING WAS ROUGH BUT WE WILL ATTEMPT TO RESITE IV WHEN SHE WAKES UP. U/S OF ABD COMPLETED. NO NEEDS VOICED BY PT OR OTHER REPUBLICAN CONTINUE WITH PLAN OF CARE
[2020-01-31 12:06] VITALS: BP 127/87
--- NOTE | 2020-01-31 12:41 | NUR ---
I have reviewed this patient and I concur with the Shift Assessment completed by the Licensed Practical Nurse today this shift.
--- NOTE | 2020-01-31 13:31 | NUR ---
NO TX GIVEN PT WANTED TO SLEEP
[2020-01-31 14:09] LABS: CA125 21.4 U/mL (0.0-38.1)
[2020-01-31 17:39] VITALS: BP 113/93
--- NOTE | 2020-01-31 18:03 | NUR ---
ADMINISTERED PRN PAIN MEDICATION, PT STATED SITE IS STINGING BUT ABLE TO FLUSH. WILL CONTINUE TO MONITOR
--- NOTE | 2020-01-31 18:43 | NUR ---
PT AND SIGNIFICANT OTHER WENT FOR WALK AROUND HOSPITAL. STATED STAYING IN ROOM WAS DRIVING THEM "STIR CRAZY" NO NEEDS VOICED, CONTINUE WITH PLAN OF CARE
[2020-01-31 20:00] VITALS: BP 116/68
[2020-02-01] VITALS: BP 139/91
[2020-02-01 04:00] VITALS: BP 140/90
[2020-02-01 06:03] LABS: BASOPHILS 0.2 % (0-2); EOSINOPHILS 2.8 % (0-7); HEMATOCRIT 37.5 % (36.0-48.0); HEMOGLOBIN 12.2 g/dL (12-16); IMMATURE GRANULOCYTES 0.5 % (0-5); LYMPHOCYTES 20.9 % (15-50); MCH 28.3 pg (26.0-34.0); MCHC 32.5 g/dL (31.0-37.0); MEAN PLATELET VOLUME 11.5 fL (7.4-10.4); MONOCYTES 8.5 % (2-11); NEUTROPHILS 67.1 % (40-80); PLATELET COUNT 99 10x3/uL (130-400); RBC 4.31 10x6/uL (4.00-5.40); RDW 15.8 % (11.5-14.5); WBC 10.3 10x3/uL (4.8-10.8)
[2020-02-01 06:41] LABS: PLATELET ESTIMATE NORMAL
--- NOTE | 2020-02-01 07:22 | NUR ---
PT RESTING IN BED WITH EYES CLOSED, SIGNIFICANT OTHER LYING IN BED WITH PT. BIPAP IN PLACE AT THIS TIME. SALINE LOC TO LEFT AC, SITE WITHOUT REDNESS OR EDEMA. PT REPORTS PAIN 8/10, BUT QUICKLY FALLS BACK TO SLEEP. PT IS EASILY AROUSED BY NAME BEING CALLED. PT DENIES FURTHER NEEDS AT THIS TIME. CL WITHIN REACH. ENCOURAGED TO CALL WITH NEEDS. CONTINUE POC
[2020-02-01 08:11] LABS: BILIRUBIN - TOTAL 0.5 mg/dL (0.2-1.3); CALCIUM 8.4 mg/dL (8.5-10.1); CARBON DIOXIDE 30.6 mmol/L (21.0-32.0); POTASSIUM - SERUM 4.6 mmol/L (3.5-5.1); PROTEIN - SERUM 7.4 g/dL (6.4-8.2)
[2020-02-01 08:15] LABS: CREATININE - SERUM 1.7 mg/dL (0.6-1.3)
[2020-02-01 08:22] VITALS: BP 149/89
[2020-02-01 12:14] VITALS: BP 141/69
--- NOTE | 2020-02-01 13:12 | NUR ---
CONTACTED DR. FERGUSON PER THOM CRUZ APN AND DR. MOBLEY FOR CARDIOLOGY ROUNDING ON PT DAILY DUE TO DAILY C/O CHEST PAIN.
[2020-02-01 20:29] VITALS: BP 141/84
[2020-02-02 00:16] VITALS: BP 128/73
[2020-02-02 04:37] LABS: BASOPHILS 0.3 % (0-2); EOSINOPHILS 4.6 % (0-7); IMMATURE GRANULOCYTES 0.5 % (0-5); LYMPHOCYTES 41.9 % (15-50); MCH 27.7 pg (26.0-34.0); MCHC 31.6 g/dL (31.0-37.0); MCV 87.7 fL (80.0-100.0); MEAN PLATELET VOLUME 12.1 fL (7.4-10.4); NEUTROPHILS 44.7 % (40-80); PLATELET COUNT 80 10x3/uL (130-400); RDW 15.6 % (11.5-14.5)
[2020-02-02 05:04] LABS: HEMATOCRIT 28.5 % (36.0-48.0); RBC 3.25 10x6/uL (4.00-5.40); WBC 3.9 10x3/uL (4.8-10.8)
[2020-02-02 05:19] LABS: ALBUMIN 2.8 g/dL (3.4-5.0); BILIRUBIN - TOTAL 0.44 mg/dL (0.2-1.3); CARBON DIOXIDE 36.2 mmol/L (21.0-32.0); CREATININE - SERUM 1.6 mg/dL (0.6-1.3); PROTEIN - SERUM 6.6 g/dL (6.4-8.2)
[2020-02-02 05:21] LABS: ANION GAP 3.6 mmol/L (8-16); POTASSIUM - SERUM 3.8 mmol/L (3.5-5.1)
[2020-02-02 06:17] VITALS: BP 138/76
[2020-02-02 07:24] LABS: INR 1.11 (0.85-1.17); PROTIME 14.3 SECONDS (11.6-15.0)
[2020-02-02 07:25] LABS: APTT 55.2 SECONDS (22.8-39.4)
[2020-02-02 07:58] VITALS: BP 148/89
--- NOTE | 2020-02-02 08:00 | NUR ---
SHE STATES SHE IS STILL ITCHING. SHE IS WORRIED ABOUT ALL HER MEDICAL ISSUES, CRYING. A MALE PERSON IN SLEEPING IN THE FLOOR. THE CALL LIGHT IS WITHIN REACH. ELIZABET HAS SEEN HER THIS MORNING, INCREASE THE DOSE AND TIME TAKEN ON THE IMDUR.
[2020-02-02 12:58] VITALS: BP 130/76
--- NOTE | 2020-02-02 13:40 | NUR ---
GONE FOR A BONE MARROW BX WITH CT.
[2020-02-02 15:11] LABS: HEPARIN INDUCED PLATELET AB 0.152 OD (0.000-0.400)
--- NOTE | 2020-02-02 16:33 | MORECARE ---
CASE MANAGEMENT DISCHARGE SUMMARY PATIENT: ROBYN MENJIVAR UNIT: [id number] ADM DATE: 01/26/20 AGE: 54 : 65 SEX: F ROOM/BED: D.2202 AUTHOR: GARY,DOC PHYSICIAN: REFERRING PHYSICIAN: FELICIA JOHNSTON MD DATE OF SERVICE: 02/02/20 Discharge Plan Patient Name: ROBYN MENJIVAR Facility: [facility]:[place] : 1965 Planned Disposition: Home or Self Care Anticipated Discharge Date: Discharge Date: Expected LOS: Initial Reviewer: [email or web address] Initial Review Date: 01/26/2020 Generated: 02/02/20 5:32 pm Comments DCP- Discharge Planning Updated by [email or web address]: Adali Welsh on 02/02/20 3:[address] [facility] in [place], delivered patient's Trilogy today and set it up in patient's room. DCP- Discharge Planning Updated by [id number]: Kelly Luong on 01/30/20 5:[address] DISCUSSED IN IDT MEETING. CARDIOVASCULAR SURGEON AND INTELLIGENCE DIRECTOR DISCUSSING PLAN. MVR WORKUP IN PROCESS. D/C PLAVIX AND INCREASE LOVENOX. DR FOOTE ROUNDED THIS PM. STABLE FROM PULMONARY VIEW FOR SURGERY NEXT WEEK. CM SPOKE W/ [facility] X[facility]. OFERED REFAX BY SHARMILA SALOMON [facility] DID NOT REC PREVIOUS FAX FROM [facility]. REC CB THIS LATE PM AND FAX STILL NOT RECEIVED. REC MD ORDER COPY VIA FAX. PLACED ON CHART FOR SIGNATURE. NOTE LEFT FOR WEEKEND DIRT BIKE MECHANIC TO OBTAIN SIGNATURE AGAIN TO REFAX. CANNOT LOCATE INITIAL SIGNED ORDER. DCP- Discharge Planning Updated by [id number]: Annette Whitfield on 01/28/20 1:[address] Patient Name: ROBYN MENJIVAR Admission Status: ER Accout number: [id number] Admission Date: 01-26-2020 : 1965 Admission Diagnosis:TRANSIENT CEREBRAL ISCHEMIC ATTACK, UNSPECIFIED Attending: FELICIA JOHNSTON Current LOS: 2 Anticipated DC Date: Planned Disposition: Home or Self Care Primary Insurance: MEDICAID [place] Discharge Planning Comments: CM met with patient to complete initial dc planning assessment. CM educated patient on the CM role and verbal consent given by patient to complete assessment. Patient lives at home with her spouse. They are from [facility]. At discharge patient plans to return home and feels this is a safe discharge. CM discussed availability of home health, rehab services, and medical equipment. She stated that she does not have a PCP. She has home O2, Concentrator from [facility]. I have sent them clinical trying to get her set up with a bipap/cpap/triliogy, I spoke with Sharmila at [facility]. She will need transportation home. She did not realize that she qualifies for [employer]. I called [employer] and spoke with a Fabienne and the patient does qualify for Transportation and they will be the one to take them home. (her spouse will also need transportation) . The Address that is on her facecheet is a PO box. The patient and spouse stated that the physical address is [address] [place] [address] [place] [address]. A good telephone number for them is [phone]. Patient denied known discharge needs at this time. CM will continue to follow and will assist as needed with dc plans/needs. Teaching Young: Annette Whitfield DCPIA - Discharge Planning Initial Assessment Updated by [email or web address]: Annette Whitfield on 01/28/20 2:28 pm * Is the patient Alert and Oriented? Yes * How many steps to enter\exit or inside your home? * PCP NONE * Pharmacy [facility] * Preadmission Environment Home with Family * ADLs Independent * Equipment Other Oxygen * Other Equipment PORTABLE AND CONCENTRATOR FROM [facility] * List name and contact numbers for known caregivers / representatives who currently or will assist patient after discharge: KYLE (SPOUSE) [phone] * Verbal permission to speak to the caregivers and representatives has been obtained from the patient. N/A * Community resources currently utilized None * Additional services required to return to the preadmission environment? Yes * Can the patient safely return to the preadmission environment? Yes * Has this patient been hospitalized within the prior 30 days at any hospital? Yes Coverage Notice Reviewer: [id number] - Annette Whitfield Notice Issued Date-Time: 01/28/2020 14:00 Notice Type: Patient Choice Letter Notice Delivered To: Patient Relationship to Patient: Residence Director Name: Delivery Method: HAND - Hand Delivered Kimberly Days: Prior Verbal Notification: Recipient Understood Notice: Yes Recipient Signature: Yes Med Rec Note Co-signed by Attending: Coverage Notice Comment: [facility] Last DP export: 01/30/20 5:14 p Patient Name: ROYBN MENJIVAR Page [id number] at 1633 All edits/amendments must be made on the electronic document DICTATION DATE: 02/02/20 163 MDM DEVELOPER: MONO 02/02/20 1633 RPT#: [id number] DC DATE: STATUS: ADM IN [facility] [address] [place] [address] END OF REPORT
[2020-02-02 16:45] VITALS: BP 136/78
[2020-02-02 20:22] VITALS: BP 142/83
[2020-02-03] VITALS (11 sets, daily range): BP systolic 130–158; BP diastolic 60–98
[2020-02-03 06:19] LABS: BASOPHILS 0.2 % (0-2); EOSINOPHILS 5.4 % (0-7); IMMATURE GRANULOCYTES 0.4 % (0-5); LYMPHOCYTES 34.9 % (15-50); MCH 27.5 pg (26.0-34.0); MCHC 31.3 g/dL (31.0-37.0); MCV 87.9 fL (80.0-100.0); MEAN PLATELET VOLUME 10.7 fL (7.4-10.4); MONOCYTES 7.7 % (2-11); NEUTROPHILS 51.4 % (40-80); PLATELET COUNT 88 10x3/uL (130-400); RBC 3.64 10x6/uL (4.00-5.40); RDW 15.5 % (11.5-14.5); WBC 4.8 10x3/uL (4.8-10.8)
[2020-02-03 06:40] LABS: INR 1.04 (0.85-1.17); PROTIME 13.6 SECONDS (11.6-15.0)
[2020-02-03 06:48] LABS: APTT 41.1 SECONDS (22.8-39.4)
[2020-02-03 06:59] LABS: ANION GAP 7.9 mmol/L (8-16); BILIRUBIN - TOTAL 0.39 mg/dL (0.2-1.3); CALCIUM 8.4 mg/dL (8.5-10.1); CARBON DIOXIDE 32.4 mmol/L (21.0-32.0); CREATININE - SERUM 1.2 mg/dL (0.6-1.3); MAGNESIUM - SERUM 1.7 mg/dL (1.8-2.4); PHOSPHOROUS 3.2 mg/dL (2.5-4.9); POTASSIUM - SERUM 4.3 mmol/L (3.5-5.1)
--- NOTE | 2020-02-03 07:24 | NUR ---
ALERT AND ORIENTED. LUNGS CLEAR BILATERALLY. HEART SOUNDS S1 AND S2 HEARD IN ALL JONAS. BOWEL SOUNDS ACTIVE X 4. IV TO RFA PATENT WITHOUT REDNESS. NPO FOR PROCEDURE. TODAY. DENIES NEEDS. BED LOW. CALL KATZ AND PERSONAL ITEMS IN REACH. WILL CONTINUE TO MONITOR.
[2020-02-03 08:11] LABS: HEPATITIS C ANTIBODY 0.4 S/CO RAT (0.0-0.9)
--- NOTE | 2020-02-03 09:13 | NUR ---
PATIENT RETURNED FROM PROCEDURE. DRSG C/D/I. VITALS STABLE. WILL CONTINUE TO MONITOR.
[2020-02-03 10:35] LABS: PLATELET ESTIMATE DECREASED
--- NOTE | 2020-02-03 10:41 | NUR ---
RESTING IN BED. VITALS REMAIN STABLE. WILL CONTINUE TO MONITOR.
[2020-02-03] MEDS ORDERED: MUCINEX DM ER1 EAC1 PO (12:25)
[2020-02-03] MEDS ORDERED: TESSALON PERLE100 MG PO (12:25)
[2020-02-03] MEDS ORDERED: SINGULAIR10 MG PO (12:26)
[2020-02-03] MEDS ORDERED: FLUTICASONE PRO16 GM NASAL (12:27)
[2020-02-03] MEDS ORDERED: CARAFATE1 G PO (12:35)
[2020-02-03] MEDS ORDERED: SYNTHROID50 MCG PO (12:35)
[2020-02-03] MEDS ORDERED: PROVENTIL/2.5 MG/3 M INH (12:37)
[2020-02-03] MEDS ORDERED: DEPAKOTE500 MG PO (12:49)
[2020-02-03] MEDS ORDERED: PLAVIX75 MG PO (12:49)
--- NOTE | 2020-02-03 13:17 | MORECARE ---
CASE MANAGEMENT DISCHARGE SUMMARY PATIENT: ROBYN MENJIVAR UNIT: [id number] ADM DATE: 01/26/20 AGE: 54 : 65 SEX: F ROOM/BED: D.2202 AUTHOR: GARY,DOC PHYSICIAN: REFERRING PHYSICIAN: FELICIA JOHNSTON MD DATE OF SERVICE: 02/03/20 Discharge Plan Patient Name: ROBYN MENJIVAR Facility: [facility]:[place] : 1965 Planned Disposition: Home or Self Care Anticipated Discharge Date: Discharge Date: Expected LOS: Initial Reviewer: [id number] Initial Review Date: 01/26/2020 Generated: 02/03/20 2:17 pm Comments DCP- Discharge Planning Updated by [id number]: Adali Welsh on 02/03/20 12:[address] Patient and son refuse HHS. Patient choice for declining of HHS signed. UMM contacted [facility], spoke with Cristina, and arranged transportation for DC home today to [address] [place] [address] [place]. Request a W/c for transportation home. DCP- Discharge Planning Updated by [id number]: Adali Welsh on 02/02/20 3:[address] [facility] in [place], delivered patient's Trilogy today and set it up in patient's room. DCP- Discharge Planning Updated by [email or web address]: Kelly Luong on 01/30/20 5:[address] DISCUSSED IN IDT MEETING. CARDIOVASCULAR SURGEON AND ASSISTED LIVING CARE MANAGER DISCUSSING PLAN. MVR WORKUP IN PROCESS. D/C PLAVIX AND INCREASE LOVENOX. DR FOOTE ROUNDED THIS PM. STABLE FROM PULMONARY VIEW FOR SURGERY NEXT WEEK. UMM SPOKE W/ [facility] X[facility]. OFERED REFAX BY SHARMILA SALOMON [facility] DID NOT REC PREVIOUS FAX FROM [facility]. REC CB THIS LATE PM AND FAX STILL NOT RECEIVED. REC MD ORDER COPY VIA FAX. PLACED ON CHART FOR SIGNATURE. NOTE LEFT FOR WEEKEND CONSULTANT TO OBTAIN SIGNATURE AGAIN TO REFAX. CANNOT LOCATE INITIAL SIGNED ORDER. DCP- Discharge Planning Updated by [id number]: Annette Whitfield on 01/28/20 1:[address] Patient Name: ROBYN MENJIVAR Admission Status: ER Accout number: [id number] Admission Date: 01-26-2020 : 1965 Admission Diagnosis:TRANSIENT CEREBRAL ISCHEMIC ATTACK, UNSPECIFIED Attending: FELICIA JOHNSTON Current LOS: 2 Anticipated DC Date: Planned Disposition: Home or Self Care Primary Insurance: MEDICAID [place] Discharge Planning Comments: CM met with patient to complete initial dc planning assessment. CM educated patient on the CM role and verbal consent given by patient to complete assessment. Patient lives at home with her spouse. They are from [facility]. At discharge patient plans to return home and feels this is a safe discharge. CM discussed availability of home health, rehab services, and medical equipment. She stated that she does not have a PCP. She has home O2, Concentrator from [facility]. I have sent them clinical trying to get her set up with a bipap/cpap/triliogy, I spoke with Sharmila at [facility]. She will need transportation home. She did not realize that she qualifies for [employer]. I called [facility] and spoke with a Fabienne and the patient does qualify for Transportation and they will be the one to take them home. (her spouse will also need transportation) . The Address that is on her facecheet is a PO box. The patient and spouse stated that the physical address is [address] [place] [address]. A good telephone number for them is [phone]. Patient denied known discharge needs at this time. CM will continue to follow and will assist as needed with dc plans/needs. Return Clerk: Annette Whitfield DCPIA - Discharge Planning Initial Assessment Updated by [email or web address]: Annette Whitfield on 01/28/20 2:28 pm * Is the patient Alert and Oriented? Yes * How many steps to enter\exit or inside your home? * PCP NONE * Pharmacy [facility] * Preadmission Environment Home with Family * ADLs Independent * Equipment Other Oxygen * Other Equipment PORTABLE AND CONCENTRATOR FROM [facility] * List name and contact numbers for known caregivers / representatives who currently or will assist patient after discharge: KYLE (SPOUSE) [phone] * Verbal permission to speak to the caregivers and representatives has been obtained from the patient. N/A * Community resources currently utilized None * Additional services required to return to the preadmission environment? Yes * Can the patient safely return to the preadmission environment? Yes * Has this patient been hospitalized within the prior 30 days at any hospital? Yes Coverage Notice Reviewer: [id number] - Annette Whitfield Notice Issued Date-Time: 01/28/2020 14:00 Notice Type: Patient Choice Letter Notice Delivered To: Patient Relationship to Patient: Short Order Cook Name: Delivery Method: HAND - Hand Delivered Kimberly Days: Prior Verbal Notification: Recipient Understood Notice: Yes Recipient Signature: Yes Med Rec Note Co-signed by Attending: Coverage Notice Comment: [facility] Reviewer: [id number] - Adali Welsh Notice Issued Date-Time: 02/03/2020 13:14 Notice Type: Patient Choice Letter Notice Delivered To: Family Member Relationship to Patient: Spouse Short Order Cook Name: Kyle Menjivar Delivery Method: HAND - Hand Delivered Kimberly Days: Prior Verbal Notification: Recipient Understood Notice: Yes Recipient Signature: Yes Med Rec Note Co-signed by Attending: Coverage Notice Comment: Patient choice to decline HHS signed by spouse, Kyle Menjivar,. Last DP export: 02/02/20 3:33 p Patient Name: ROBYN MENJIVAR Page [id number] at 1317 All edits/amendments must be made on the electronic document DICTATION DATE: 02/03/20 1317 HEALTH DATA ADMINISTRATOR: MONO 02/03/20 1317 RPT#: [id number] DC DATE: STATUS: ADM IN [facility] [address] [place] [address] END OF REPORT
--- NOTE | 2020-02-03 14:06 | NUR ---
DRSG TO LOWER BACK BLOODY. IR IN ROOM. PRESSURE DRSG APPLIED AND PATIENT LAID ON BACK TO STOP BLEED. IV TORADOL GIVEN PER REQUEST.
[2020-02-03] MEDS ORDERED: PROAIR HFA8.5 G1 INH (14:11)
--- NOTE | 2020-02-03 14:40 | NUR ---
PATIENT DRSG SITE BLEEDING AGAIN. IR CALLED. PRESSURE DRSG PLACED BY IR AND STATES WILL NOTIFY DR FLORES.
--- NOTE | 2020-02-03 14:48 | MORECARE ---
CASE MANAGEMENT DISCHARGE SUMMARY PATIENT: ROBYN MENJIVAR UNIT: [id number] ADM DATE: 01/26/20 AGE: 54 : 65 SEX: F ROOM/BED: D.2202 AUTHOR: GARY,DOC PHYSICIAN: REFERRING PHYSICIAN: FELICIA JOHNSTON MD DATE OF SERVICE: 02/03/20 Discharge Plan Patient Name: ROBYN MENJIVAR Facility: [facility]:[place] : 1965 Planned Disposition: Home or Self Care Anticipated Discharge Date: Discharge Date: Expected LOS: Initial Reviewer: [email or web address] Initial Review Date: 01/26/2020 Generated: 02/03/20 3:48 pm DCP- Discharge Planning Updated by [email or web address]: Adali Welsh on 02/03/20 12:[address] Patient and son refuse HHS. Patient choice for declining of HHS signed. UMM contacted [facility], spoke with Cristina, and arranged transportation for DC home today to [address] [place] [address] [place] [place]. Request a W/c for transportation home. DCP- Discharge Planning Updated by [id number]: Adali Welsh on 02/02/20 3:[address] [facility] in [place], delivered patient's Trilogy today and set it up in patient's room. DCP- Discharge Planning Updated by [email or web address]: Kelly Luong on 01/30/20 5:[address] DISCUSSED IN IDT MEETING. CARDIOVASCULAR SURGEON AND CONCRETE PUDDLER DISCUSSING PLAN. MVR WORKUP IN PROCESS. D/C PLAVIX AND INCREASE LOVENOX. DR FOOTE ROUNDED THIS PM. STABLE FROM PULMONARY VIEW FOR SURGERY NEXT WEEK. UMM SPOKE W/ [facility] X2. OFERED REFAX BY SHARMILA SALOMON [facility] DID NOT REC PREVIOUS FAX FROM [facility]. REC CB THIS LATE PM AND FAX STILL NOT RECEIVED. REC MD ORDER COPY VIA FAX. PLACED ON CHART FOR SIGNATURE. NOTE LEFT FOR WEEKEND DIALYSIS BIOMED TECHNICIAN TO OBTAIN SIGNATURE AGAIN TO REFAX. CANNOT LOCATE INITIAL SIGNED ORDER. DCP- Discharge Planning Updated by [id number]: Annette Whitfield on 01/28/20 1:[address] Patient Name: ROBYN MENJIVAR Admission Status: ER Accout number: [id number] Admission Date: 01-26-2020 : 1965 Admission Diagnosis:TRANSIENT CEREBRAL ISCHEMIC ATTACK, UNSPECIFIED Attending: FELICIA JOHNSTON Current LOS: 2 Anticipated DC Date: Planned Disposition: Home or Self Care Primary Insurance: MEDICAID [place] Discharge Planning Comments: CM met with patient to complete initial dc planning assessment. CM educated patient on the CM role and verbal consent given by patient to complete assessment. Patient lives at home with her spouse. They are from [facility]. At discharge patient plans to return home and feels this is a safe discharge. CM discussed availability of home health, rehab services, and medical equipment. She stated that she does not have a PCP. She has home O2, Concentrator from [facility]. I have sent them clinical trying to get her set up with a bipap/cpap/triliogy, I spoke with Sharmila at [facility]. She will need transportation home. She did not realize that she qualifies for [employer]. I called [facility] and spoke with a Fabienne and the patient does qualify for Transportation and they will be the one to take them home. (her spouse will also need transportation) . The Address that is on her facecheet is a PO box. The patient and spouse stated that the physical address is [address] [place] [address]. A good telephone number for them is [phone]. Patient denied known discharge needs at this time. CM will continue to follow and will assist as needed with dc plans/needs. Chair Mender: Annette Whitfield DCPIA - Discharge Planning Initial Assessment Updated by [email or web address]: Annette Whitfield on 01/28/20 2:28 pm * Is the patient Alert and Oriented? Yes * How many steps to enter\exit or inside your home? * PCP NONE * Pharmacy [facility] * Preadmission Environment Home with Family * ADLs Independent * Equipment Other Oxygen * Other Equipment PORTABLE AND CONCENTRATOR FROM [facility] * List name and contact numbers for known caregivers / representatives who currently or will assist patient after discharge: KYLE (SPOUSE) [phone] * Verbal permission to speak to the caregivers and representatives has been obtained from the patient. N/A * Community resources currently utilized None * Additional services required to return to the preadmission environment? Yes * Can the patient safely return to the preadmission environment? Yes * Has this patient been hospitalized within the prior 30 days at any hospital? Yes Coverage Notice Reviewer: [id number] - Annette Whitfield Notice Issued Date-Time: 01/28/2020 14:00 Notice Type: Patient Choice Letter Notice Delivered To: Patient Relationship to Patient: Bobbin Presser Name: Delivery Method: HAND - Hand Delivered Kimberly Days: Prior Verbal Notification: Recipient Understood Notice: Yes Recipient Signature: Yes Med Rec Note Co-signed by Attending: Coverage Notice Comment: [facility] Reviewer: [id number] - Adali Welsh Notice Issued Date-Time: 02/03/2020 13:14 Notice Type: Patient Choice Letter Notice Delivered To: Family Member Relationship to Patient: Spouse Bobbin Presser Name: Kyle Menjivar Delivery Method: HAND - Hand Delivered Kimberly Days: Prior Verbal Notification: Recipient Understood Notice: Yes Recipient Signature: Yes Med Rec Note Co-signed by Attending: Coverage Notice Comment: Patient choice to decline HHS signed by spouse, Kyle Menjivar,. Last DP export: 02/03/20 12:17 p Patient Name: ROBYN MENJIVAR Page [id number] at 1448 All edits/amendments must be made on the electronic document DICTATION DATE: 02/03/20 1448 WAGON DRILL OPERATOR: MONO 02/03/20 1448 RPT#: [id number] DC DATE: STATUS: ADM IN [facility] [address] [place] [address] END OF REPORT
--- NOTE | 2020-02-03 15:20 | NUR ---
PRESSURE DRESSING REPLACED BY IR AND SAND BAG APPLIED. PATIENT NO LONGER DC TODAY. STAYING OVERNIGHT. WILL PLACE MUNOZ PER MD ORDER FOR IMMOBILITY.
--- NOTE | 2020-02-03 15:44 | NUR ---
16FR MUNOZ CATHETER INSERTED PER ORDER. STERILE TECHNIQUE USED. 10ML STERILE SALINE USED TO INFLATE STABILIZATION BALLOON. CLEAR LIGHT YELLOW URINE NOTED TO COLLECTION BAG AFTER INSERTION. STAT LOCK IN PLACE TO RIGHT UPPER LEG. BED IS IN THE LOWEST POSITION. CALL LIGHT AND BEDSIDE TABLE ARE WITHIN REACH. SIDE RAILS X 2. PT DENIES FURTHER NEEDS. WILL CONT TO MONITOR.
--- NOTE | 2020-02-03 17:01 | NUR ---
22G PIV SITED TO RIGHT SHOULDER. FLUSHES WITHOUT DIFFICULTY. BED IN LOWEST POSITION. CALL LIGHT AND BEDSIDE TABLE ARE WITHIN REACH. SIDE RAILS X 2. PT DENIES FURTHER NEEDS. WILL NOTIFY SHIFT NURSE OF PT PIV.
--- NOTE | 2020-02-03 17:04 | NUR ---
PATIENT BAILEYG C/D/I. STATES PAIN 05/29. IV RESITED TO [facility] AND IV PAIN MEDICATION GIVEN.
[2020-02-04 00:28] VITALS: BP 122/78
[2020-02-04 05:33] LABS: BASOPHILS 0.2 % (0-2); EOSINOPHILS 4.6 % (0-7); HEMATOCRIT 29.5 % (36.0-48.0); HEMOGLOBIN 9.2 g/dL (12-16); IMMATURE GRANULOCYTES 0.5 % (0-5); MCH 27.3 pg (26.0-34.0); MCHC 31.2 g/dL (31.0-37.0); MCV 87.5 fL (80.0-100.0); MEAN PLATELET VOLUME 10.7 fL (7.4-10.4); MONOCYTES 7.9 % (2-11); NEUTROPHILS 51.8 % (40-80); PLATELET COUNT 99 10x3/uL (130-400); RBC 3.37 10x6/uL (4.00-5.40); RDW 15.4 % (11.5-14.5); WBC 4.2 10x3/uL (4.8-10.8)
[2020-02-04 05:44] LABS: CALCIUM 8.2 mg/dL (8.5-10.1); CARBON DIOXIDE 33.2 mmol/L (21.0-32.0); CREATININE - SERUM 1.4 mg/dL (0.6-1.3); MAGNESIUM - SERUM 1.7 mg/dL (1.8-2.4); POTASSIUM - SERUM 4.2 mmol/L (3.5-5.1)
[2020-02-04 05:49] LABS: PHOSPHOROUS 4.3 mg/dL (2.5-4.9)
[2020-02-04 05:50] VITALS: BP 137/89
--- NOTE | 2020-02-04 07:48 | NUR ---
ALERT AND ORENTED ABLE TO VOICE NEEDS AND WANTS TO STAFF. IV TO RIGHT SHOULDER WITH NS AT 10 FSBS EVERY 4 HR. MUNOZ CATH 700CC OUTPUT. CALLED TO ROOM AT ABOUT MIDNIGHT SHE STATED THAT IT WAS BLEADING ASSESSED SITE. DRESSING WAS CDI, WITH NO BLEADING NOTED. AT ABOUT 4AM REPORTED BLOOD FROM SITE. DRESSING WAS OFF BLOOD Was on pad and gown. area cleaned presser dressing applied called to DR Smalls order for H&H. STATED HE WOULD COME BY WITH AM. DR SMALLS CAME AND LOOKED AT SITE AND DRESSING. STATED LOOKED GOOD KEEP DRESSING IN PLACE. NO NEW ORDERS.
--- NOTE | 2020-02-04 08:21 | NUR ---
SHE IS RATING HER PAIN 10/10. THE DRESSING TO HER BACK STILL HAS THE PRESSURE DRESSING CLEAN, DRY, INTACT. SHE HAS A MUNOZ WITH URINE IN THE BAG. THE CALL LIGHT IS WITHIN REACH. THERE IS A MALE PERSON SLEEPING IN THE FLOOR.
[2020-02-04 08:56] VITALS: BP 149/95
[2020-02-04 12:06] LABS: HEMATOCRIT 29.3 % (36.0-48.0); HEMOGLOBIN 9.4 g/dL (12-16)
[2020-02-04 12:24] VITALS: BP 133/95
[2020-02-04 12:29] LABS: ANION GAP 6.1 mmol/L (8-16); CALCIUM 8.5 mg/dL (8.5-10.1); CARBON DIOXIDE 32.9 mmol/L (21.0-32.0); CREATININE - SERUM 1.3 mg/dL (0.6-1.3)
[2020-02-04 18:01] VITALS: BP 146/94
--- NOTE | 2020-02-04 19:30 | NUR ---
MEDICATED WITH DILAUDID FOR C/O PAIN RATING 10 IN BACK. ALERT AND ORIENTED X4. LAUGHING AND TALKING TO STAFF AND SIG OTHER. RESP IRREG. O2 @ 4L/NC. NONPROD COUGH NOTED. MUNOZ CATH PATENT AND DRAINING CLEAR YELLOW URINE. DRSG NOTED TO BACK IS C/D/I AND PT IS LAYING ON IT. ANXIOUS AND ATTN SEEKING. SR ELEVATED X2. CL IN REACH.
[2020-02-04 20:00] VITALS: BP 147/89
--- NOTE | 2020-02-04 22:08 | NUR ---
PT COMPLAINS THAT DILAUDID ISNT HELPING PAIN AND WANTS MORPHINE. NOTIFIED UZIEL JEAN. ORDER NOTED TO INCREASE DILAUDID FROM Q6H TO Q4H AND GIVE TYLENOL FOR BREAKTHROUGH PAIN. MEDICATED WITH TYLENOL AT THIS TIME FOR C/O BACK PAIN RATING 8 AND EXPLAINED NEW ORDER AND PT VERBALIZED UNDERSTANDING.
--- NOTE | 2020-02-04 23:30 | NUR ---
MEDICATED WITH DILAUDID FOR C/O PAIN IN BACK RATING 10. CL IN REACH.
[2020-02-05] VITALS: BP 142/88
--- NOTE | 2020-02-05 03:45 | NUR ---
MEDICATED WITH DILAUDID FOR C/O PAIN IN BACK. CL IN REACH.
[2020-02-05 04:00] VITALS: BP 136/79
--- NOTE | 2020-02-05 06:51 | NUR ---
REFUSED TO HAVE AM LABS DRAWN. NOTIFIED PER NOVEMBER, CASH REGISTER SERVICER.
--- NOTE | 2020-02-05 08:04 | NUR ---
SHE IS SLEEPY, BUT AROUSES TO MY VOICE. DRESSING TO THE BACK IS CLEAN, DRY, INTACT. THE CALL LIGHT IS WITHIN REACH.
[2020-02-05 09:07] LABS: BASOPHILS 0 % (0-2); EOSINOPHILS 5.1 % (0-7); HEMATOCRIT 29.4 % (36.0-48.0); HEMOGLOBIN 9.5 g/dL (12-16); IMMATURE GRANULOCYTES 0.4 % (0-5); LYMPHOCYTES 33.4 % (15-50); MCH 27.7 pg (26.0-34.0); MCHC 32.3 g/dL (31.0-37.0); MCV 85.7 fL (80.0-100.0); MEAN PLATELET VOLUME 10.3 fL (7.4-10.4); MONOCYTES 9.3 % (2-11); NEUTROPHILS 51.8 % (40-80); PLATELET COUNT 91 10x3/uL (130-400); RBC 3.43 10x6/uL (4.00-5.40); RDW 15.1 % (11.5-14.5); WBC 4.9 10x3/uL (4.8-10.8)
[2020-02-05 09:22] LABS: ANION GAP 5.9 mmol/L (8-16); CALCIUM 8.4 mg/dL (8.5-10.1); CARBON DIOXIDE 33.8 mmol/L (21.0-32.0); CREATININE - SERUM 1.2 mg/dL (0.6-1.3); MAGNESIUM - SERUM 1.7 mg/dL (1.8-2.4); POTASSIUM - SERUM 3.7 mmol/L (3.5-5.1)
[2020-02-05 09:32] VITALS: BP 147/91
[2020-02-05] MEDS ORDERED: HYDROCODON-ACE1 EA10 PO (09:51)
[2020-02-05 11:35] LABS: PLATELET ESTIMATE DECREASED
--- NOTE | 2020-02-05 14:37 | NUR ---
HER IV IS OUT, SHE SIGNED ALL THE PAPERWORK, QUESTIONS ANSWERED. THEY HAVE THE BREATHING MACHINE WITH THEM FOR HOME USE. SHE HAS VOIDED AFTER THE MUNOZ WAS REMOVED. TAKEN TO THE FRONT DOOR VIA WHEELCHAIR TO THE [employer] BUS.
--- NOTE | 2020-02-05 18:36 | MORECARE ---
CASE MANAGEMENT DISCHARGE SUMMARY PATIENT: ROBYN MENJIVAR UNIT: [id number] ADM DATE: 01/26/20 AGE: 54 : 65 SEX: F ROOM/BED: D.2202 AUTHOR: GARY,DOC PHYSICIAN: REFERRING PHYSICIAN: FELICIA JOHNSTON MD DATE OF SERVICE: 02/05/20 Discharge Plan Patient Name: ROBYN MENJIVAR Facility: [facility]:[place] : 1965 Planned Disposition: Home or Self Care Anticipated Discharge Date: 02/05/20 Discharge Date: 02/05/2020 Expected LOS: 10 Initial Reviewer: [id number] Initial Review Date: 01/26/2020 Generated: 02/05/20 7:35 pm DCP- Discharge Planning Updated by [email or web address]: Adali Welsh on 02/03/20 12:[address] Patient and son refuse HHS. Patient choice for declining of HHS signed. UMM contacted [facility], spoke with Cristina, and arranged transportation for DC home today to [address] [place] [address] [place] [place]. Request a W/c for transportation home. DCP- Discharge Planning Updated by [id number]: Adali Welsh on 02/02/20 3:[address] [facility] in [place], delivered patient's Trilogy today and set it up in patient's room. DCP- Discharge Planning Updated by [id number]: Kelly Luong on 01/30/20 5:[address] DISCUSSED IN IDT MEETING. CARDIOVASCULAR SURGEON AND TRUSS DRIVER HELPER DISCUSSING PLAN. MVR WORKUP IN PROCESS. D/C PLAVIX AND INCREASE LOVENOX. DR FOOTE ROUNDED THIS PM. STABLE FROM PULMONARY VIEW FOR SURGERY NEXT WEEK. UMM SPOKE W/ АННАE X2. OFERED REFAX BY SHARMILA SALOMON A[facility]ON DID NOT REC PREVIOUS FAX FROM [facility]. REC CB THIS LATE PM AND FAX STILL NOT RECEIVED. REC MD ORDER COPY VIA FAX. PLACED ON CHART FOR SIGNATURE. NOTE LEFT FOR WEEKEND RELATIONSHIP COUNSELOR TO OBTAIN SIGNATURE AGAIN TO REFAX. CANNOT LOCATE INITIAL SIGNED ORDER. DCP- Discharge Planning Updated by [id number]: Annette Whitfield on 01/28/20 1:[address] Patient Name: ROBYN MENJIVAR Admission Status: ER Accout number: [id number] Admission Date: 01-26-2020 : 1965 Admission Diagnosis:TRANSIENT CEREBRAL ISCHEMIC ATTACK, UNSPECIFIED Attending: FELICIA JOHNSTON Current LOS: 2 Anticipated DC Date: Planned Disposition: Home or Self Care Primary Insurance: MEDICAID [place] Discharge Planning Comments: CM met with patient to complete initial dc planning assessment. CM educated patient on the CM role and verbal consent given by patient to complete assessment. Patient lives at home with her spouse. They are from [facility]. At discharge patient plans to return home and feels this is a safe discharge. CM discussed availability of home health, rehab services, and medical equipment. She stated that she does not have a PCP. She has home O2, Concentrator from [employer] [facility]. I have sent them clinical trying to get her set up with a bipap/cpap/triliogy, I spoke with Sharmila at [facility]. She will need transportation home. She did not realize that she qualifies for [employer]. I called [facility] and spoke with miguel Loving and the patient does qualify for Transportation and they will be the one to take them home. (her spouse will also need transportation) . The Address that is on her facecheet is a PO box. The patient and spouse stated that the physical address is [address] [place] [address]. A good telephone number for them is [phone]. Patient denied known discharge needs at this time. CM will continue to follow and will assist as needed with dc plans/needs. Fundraising Manager: Annette Whitfield DCPIA - Discharge Planning Initial Assessment Updated by [id number]: Annette Whitfield on 01/28/20 2:28 pm * Is the patient Alert and Oriented? Yes * How many steps to enter\exit or inside your home? * PCP NONE * Pharmacy [facility] * Preadmission Environment Home with Family * ADLs Independent * Equipment Other Oxygen * Other Equipment PORTABLE AND CONCENTRATOR FROM [facility] * List name and contact numbers for known caregivers / representatives who currently or will assist patient after discharge: KYLE (SPOUSE) [phone] * Verbal permission to speak to the caregivers and representatives has been obtained from the patient. N/A * Community resources currently utilized None * Additional services required to return to the preadmission environment? Yes * Can the patient safely return to the preadmission environment? Yes * Has this patient been hospitalized within the prior 30 days at any hospital? Yes Coverage Notice Reviewer: [id number] - Annette Whitfield Notice Issued Date-Time: 01/28/2020 14:00 Notice Type: Patient Choice Letter Notice Delivered To: Patient Relationship to Patient: Video Game Script Writer Name: Delivery Method: HAND - Hand Delivered Kimberly Days: Prior Verbal Notification: Recipient Understood Notice: Yes Recipient Signature: Yes Med Rec Note Co-signed by Attending: Coverage Notice Comment: [facility] Reviewer: [id number] - Adali Welsh Notice Issued Date-Time: 02/03/2020 13:14 Notice Type: Patient Choice Letter Notice Delivered To: Family Member Relationship to Patient: Spouse Video Game Script Writer Name: Kyle Menjivar Delivery Method: HAND - Hand Delivered Kimberly Days: Prior Verbal Notification: Recipient Understood Notice: Yes Recipient Signature: Yes Med Rec Note Co-signed by Attending: Coverage Notice Comment: Patient choice to decline HHS signed by spouse, Kyle Menjivar,. Last DP export: 02/03/20 1:48 p Patient Name: ROBYN MENJIVAR Page [id number] at 1836 All edits/amendments must be made on the electronic document DICTATION DATE: 02/05/201835 RELOCATION COUNSELOR: MONO 02/05/201835 RPT#: [id number] DC DATE:02/05/20 STATUS: DIS IN [facility] [address] [place] [address] END OF REPORT
--- NOTE | 2020-02-06 09:24 | MORECARE ---
CASE MANAGEMENT DISCHARGE SUMMARY PATIENT: ROBYN MENJIVAR UNIT: [id number] ADM DATE: 01/26/20 AGE: 54 : 65 SEX: F ROOM/BED: D.2202 AUTHOR: GARY,DOC PHYSICIAN: REFERRING PHYSICIAN: FELICIA JOHNSTON MD DATE OF SERVICE: 02/06/20 Discharge Plan Patient Name: ROBYN MENJIVAR Facility: [facility]:[place] : 1965 Planned Disposition: Home or Self Care Anticipated Discharge Date: 02/05/20 Discharge Date: 02/05/2020 Expected LOS: 10 Initial Reviewer: [email or web address] Initial Review Date: 01/26/2020 Generated: 02/06/20 10:24 am DCP- Discharge Planning Updated by [id number]: Adali Welsh on 02/03/20 12:[address] Patient and son refuse HHS. Patient choice for declining of HHS signed. UMM contacted [facility], spoke with Cristina, and arranged transportation for DC home today to [address] [place] [address] [address] [place]. Request a W/c for transportation home. DCP- Discharge Planning Updated by [id number]: Adali Welsh on 02/02/20 3:[address] [facility] in [place], delivered patient's Trilogy today and set it up in patient's room. DCP- Discharge Planning Updated by [id number]: Kelly Luong on 01/30/20 5:[address] DISCUSSED IN IDT MEETING. CARDIOVASCULAR SURGEON AND STONE MASON DISCUSSING PLAN. MVR WORKUP IN PROCESS. D/C PLAVIX AND INCREASE LOVENOX. DR FOOTE ROUNDED THIS PM. STABLE FROM PULMONARY VIEW FOR SURGERY NEXT WEEK. UMM SPOKE W/ АННАE X2. OFERED REFAX BY SHARMILA SALOMON AARON DID NOT REC PREVIOUS FAX FROM [facility]. REC CB THIS LATE PM AND FAX STILL NOT RECEIVED. REC MD ORDER COPY VIA FAX. PLACED ON CHART FOR SIGNATURE. NOTE LEFT FOR WEEKEND ASSESSOR TO OBTAIN SIGNATURE AGAIN TO REFAX. CANNOT LOCATE INITIAL SIGNED ORDER. DCP- Discharge Planning Updated by [id number]: Annette Whitfield on 01/28/20 1:[address] Patient Name: ROBYN MENJIVAR Admission Status: ER Accout number: [id number] Admission Date: 01-26-2020 : 1965 Admission Diagnosis:TRANSIENT CEREBRAL ISCHEMIC ATTACK, UNSPECIFIED Attending: FELICIA JOHNSTON Current LOS: 2 Anticipated DC Date: Planned Disposition: Home or Self Care Primary Insurance: MEDICAID [place] Discharge Planning Comments: CM met with patient to complete initial dc planning assessment. CM educated patient on the CM role and verbal consent given by patient to complete assessment. Patient lives at home with her spouse. They are from [facility]. At discharge patient plans to return home and feels this is a safe discharge. CM discussed availability of home health, rehab services, and medical equipment. She stated that she does not have a PCP. She has home O2, Concentrator from [facility] [facility]. I have sent them clinical trying to get her set up with a bipap/cpap/triliogy, I spoke with Sharmila at [facility]. She will need transportation home. She did not realize that she qualifies for [employer]. I called [facility] and spoke with miguel Loving and the patient does qualify for Transportation and they will be the one to take them home. (her spouse will also need transportation) . The Address that is on her facecheet is a PO box. The patient and spouse stated that the physical address is [address] [place] [address]. A good telephone number for them is [phone]. Patient denied known discharge needs at this time. CM will continue to follow and will assist as needed with dc plans/needs. Domestic Technician: Annette Whitfield DCPIA - Discharge Planning Initial Assessment Updated by [id number]: Annette Whitfield on 01/28/20 2:28 pm * Is the patient Alert and Oriented? Yes * How many steps to enter\exit or inside your home? * PCP NONE * Pharmacy [facility] * Preadmission Environment Home with Family * ADLs Independent * Equipment Other Oxygen * Other Equipment PORTABLE AND CONCENTRATOR FROM [facility] * List name and contact numbers for known caregivers / representatives who currently or will assist patient after discharge: KYLE (SPOUSE) [phone] * Verbal permission to speak to the caregivers and representatives has been obtained from the patient. N/A * Community resources currently utilized None * Additional services required to return to the preadmission environment? Yes * Can the patient safely return to the preadmission environment? Yes * Has this patient been hospitalized within the prior 30 days at any hospital? Yes Coverage Notice Reviewer: [id number] - Annette Whitfield Notice Issued Date-Time: 01/28/2020 14:00 Notice Type: Patient Choice Letter Notice Delivered To: Patient Relationship to Patient: Certified Court Interpreter Name: Delivery Method: HAND - Hand Delivered Kimberly Days: Prior Verbal Notification: Recipient Understood Notice: Yes Recipient Signature: Yes Med Rec Note Co-signed by Attending: Coverage Notice Comment: [facility] Reviewer: [id number] - Adali Welsh Notice Issued Date-Time: 02/03/2020 13:14 Notice Type: Patient Choice Letter Notice Delivered To: Family Member Relationship to Patient: Spouse Certified Court Interpreter Name: Kyle Menjivar Delivery Method: HAND - Hand Delivered Kimbrely Days: Prior Verbal Notification: Recipient Understood Notice: Yes Recipient Signature: Yes Med Rec Note Co-signed by Attending: Coverage Notice Comment: Patient choice to decline HHS signed by spouse, Kyle Menjivar,. Last DP export: 02/05/20 5:36 p Patient Name: ROBYN MENJIVAR Page [id number] at 0924 All edits/amendments must be made on the electronic document DICTATION DATE: 02/06/20923 BUILDER OPERATOR: MONO 02/06/20923 RPT#: [id number] DC DATE:02/05/20 STATUS: DIS IN [facility] [address] [place] [address] END OF REPORT
== END 2020-02-05 14:40 | disposition home or self-care (01) | DRG 100 ==
LOC: D.ER 04:12 → D.ICU 05:05 → D.MS 05:05
PROVIDERS: Family Medicine; General Practice; Internal Medicine Hematology & Oncology; Internal Medicine Pulmonary Disease; Thoracic Surgery (Cardiothoracic Vascular Surgery); ADMIT Family Medicine; ATTEND Family Medicine
PROC: 07DR3ZX Extraction of Iliac Bone Marrow, Percutaneous Approach, Diagnostic (ICD-10-PCS; principal; 2020-02-03)
DX: G40.909 Epilepsy, unspecified, not intractable, without status epilepticus (principal); J96.22 Acute and chronic respiratory failure with hypercapnia; J96.21 Acute and chronic respiratory failure with hypoxia; I50.23 Acute on chronic systolic (congestive) heart failure; L76.22 Postprocedural hemorrhage of skin and subcutaneous tissue following other procedure; G45.9 Transient cerebral ischemic attack, unspecified; J44.9 Chronic obstructive pulmonary disease, unspecified; I25.10 Atherosclerotic heart disease of native coronary artery without angina pectoris; E03.9 Hypothyroidism, unspecified; I11.0 Hypertensive heart disease with heart failure; E78.5 Hyperlipidemia, unspecified; F41.1 Generalized anxiety disorder; R51 Headache; G47.30 Sleep apnea, unspecified; D64.9 Anemia, unspecified; M06.9 Rheumatoid arthritis, unspecified; E11.65 Type 2 diabetes mellitus with hyperglycemia; D69.6 Thrombocytopenia, unspecified; Y83.9 Surgical procedure, unspecified as the cause of abnormal reaction of the patient, or of later complication, without mention of misadventure at the time of the procedure; I08.1 Rheumatic disorders of both mitral and tricuspid valves; Z86.73 Personal history of transient ischemic attack (TIA), and cerebral infarction without residual deficits; Z87.891 Personal history of nicotine dependence

== ENCOUNTER 2020-03-21 21:11 | Inpatient (IN) | payer MEDICAID ==
[~2020-03-21] VITALS: Ht 167.6 cm; Wt 90.2 kg
--- NOTE | ~2020-03-21 | HEMODYNAMI ---
PATIENT:ROBYN MENJIVAR MEDICAL RECORD: [id number] : 65 LOCATION:[facility] D.211 ADMISSION DATE: 03/21/20 Generatedon:03/22/202011:30 Patient name: ROBYN MENJIVAR Patient #: [id number] SSN: [id number] : 1965 Date of study: 03/22/2020 Page: Of Hemodynamic Procedure Report Patient Data Patient Demographics Procedure consent was obtained First Name: ROBYN Gender: Female Last Name: OTTO : 1965 Middle Initial: E Age: 54 year(s) Patient #: [id number] Race: SSN: [id number] Additional ID: [id number] Contact details Address: [place] [address] State: [place] City: [place] Zip code: [address] Past Medical History Allergies Allergen Reaction Date Comments Reported Other 01/23/2020 PROVOCAL/TOMATOES/OXYCODONE allergy HCL(PERCOCET)/PENICILLINS/ SEE LIST Other 03/22/2020 TOMATOES,PROVACAL/OXYCODONE/PCN allergy SEE CHART Admission Admission Data Admission Date: 03/21/2020 Admission Time: 23:16 Arrival Date: 03/22/2020 Arrival Time: 0:00 Room #: [facility] Height (in.): 66.14 BSA: 1.84 (m2) Height (cm.): 168 BMI: 26.22 (kg/m2) Weight (lbs.): 163.14 Weight (kg.): 74 Lab Results Lab Result Date: 03/22/2020 Lab Result Time: 0:00 Biochemistry Name Units Result Min Max BUN mg/dl 21 --(----)-* 7 18 CK-MB ng/ml 3.4 --(---*)-- 0 3.6 Creatinine mg/dl 1 --(--*-)-- 0.6 1.3 eGFR ml/min 61.35978 *-(----)-- 90 120 NONAFRICAN Troponin l ng/ml 0.026 --(-*--)-- 0 0.06 CBC Name Units Result Min Max Hematocrit % 31.2 *-(----)-- 42 54 Hemoglobin g/dl 9.7 *-(----)-- 13.5 17.5 Procedure Procedure Types Cath Procedure Diagnostic Procedure Right Heart RHC and LHC w/Coronaries Sedation Charges Moderate Sedation up to 30 minutes Procedure Description Procedure Date Procedure Date: 03/22/2020 Procedure Start Time: 11:01 Procedure End Time: 11:28 Procedure Staff Name Function Brad Sesay MD Performing Physician Mena Monk RT Monitor Ceasar Lacy RN Nurse Marissa Cohn RT Scrub Indication Unstable angina Procedure Data Cath Procedure Fluoroscopy Diagnostic fluoroscopy Total fluoroscopy Time: 1.8 time: 1.8 min min Diagnostic fluoroscopy Total fluoroscopy dose: 838 dose: 838 mGy mGy Contrast Material Contrast Material Type Amount (ml) Isovue 300 82 Entry Location Entry Primary Successful Side Size Upsize Upsize Entry Closure Alva ccessful Closure Location (Fr) 1 (Fr) 2 (Fr) Remarks Device Remarks Femoral Right 5 Fr Exoseal artery Femoral Right 7 Fr Manual vein Short Compression Estimated blood loss: 5 ml Diagnostic catheters Device Type Used For End Catheter Placement SWAN 7Fr Thermodilution Procedure cather (131F7P) MULTIPACK JL 4.0 5Fr Left Coronary catheter Angiography MULTIPACK 3DRC 5Fr Right Coronary catheter Angiography MULTIPACK Pigtail 5 Fr LV Angiography catheter Procedure Complications No complications Procedure Medications Medication Administration Route Dosage Oxygen etCO2 Nasal cannula 3 l/min Lidocaine 2% added to field 20 0.9% NaCl I.V. 100 ml/hr Heparin Flush Bag added to field 2 bags (1000units/500ml NS) Versed I.V. 1 mg Fentanyl I.V. 50 mcg Versed I.V. 1 mg Fentanyl I.V. 50 mcg Hemodynamics Rest BSA: 1.84 (m2) HGB: 9.7 (g/dl) O2 Consumption: Estimated: 181.15 (ml/min) O2 Con sumption indexed: Estimated:98.45 (ml/min/m) Heart Rate: 75 (bpm) Pressure Samples Time Site Value (mmHg) Purpose Heart Use Rate(bpm) 11:08 PCW 50/50(49) Snapshot 74 11:08 PA 89/68(76) Snapshot 73 11:09 RV 67/33,34 Snapshot 74 11:10 RA 50/51(46) Snapshot 74 11:18 LV 105/27,35 Snapshot 72 11:18 AO 102/35(61) Pullback 72 11:18 LV 53/10,-12 Pullback 72 Gradients Valve Time Site 1 Site 2 Mean SEP/DFP Peak To Heart Use (mmHg) (sec/min) Peak Rate (mmHg) (bpm) Aortic 11:18 LV AO 0 72 53/10,-12 102/35(61) Calculations Valve P-P Mean Valve Index Valve Source Name Gradient Area Flow (cm2) Aortic 0 0 Snapshots Pre Cath Intra NCS Post Cath Vital Signs Time Heart Resp SPO2 etCO2 NIBP (mmHg) Rhythm Pain Sedation Rate (ipm) (%) (mmHg) Status Level (bpm) 10:42:57 70 14 97 0 126/86(105) NSR 0 (11) 10(A) , No pain 10:47:03 69 17 98 0 126/96(121) NSR 0 (11) 10(A) , No pain 10:51:06 71 15 97 0 119/83(100) NSR 0 (11) 10(A) , No pain 10:55:16 71 15 97 0 120/80(97) NSR 0 (11) 10(A) , No pain 10:59:24 70 16 96 0 126/83(102) NSR 0 (11) 10(A) , No pain 11:04:11 71 14 94 0 117/89(114) NSR 0 (11) 9(A) , No pain 11:08:17 73 15 92 0 122/89(99) NSR 0 (11) 9(A) , No pain 11:13:20 74 15 92 0 115/83(108) NSR 0 (11) 9(A) , No pain 11:17:23 72 11 94 0 115/86(105) NSR 0 (11) 9(A) , No pain 11:21:31 72 15 95 0 124/79(104) NSR 0 (11) 10(A) , No pain 11:25:43 72 5 95 0 123/81(103) NSR 0 (11) 10(A) , No pain Medications Time Medication Route Dose Verified Delivered Reason Notes Eff ectiveness by by 10:43:03 Oxygen etCO2 3 Brad Ceasar used for Nasal l/min [place] Lacy blood typer cannula 10:43:11 Lidocaine 2% added 20ml Brad Salinas for local to vial [facility] anesthetic field MD [place] 10:43:30 0.9% NaCl I.V. 100 Brad Garciaie Per ml/hr [facility] RN physician 10:44:26 Heparin Flush added 2 Brad Salinas used for Bag to bags [facility] procedure (1000units/500ml field MD [place] NS) 10:57:27 Versed I.V. 1 mg Brad Mcdonough for Lázaro Lacy RN sedation 10:57:36 Fentanyl I.V. 50 Brad Zelayaie for mcg Lázaro Bambi RN sedation 11:02:54 Versed I.V. 1 mg Brad Garciaie for [facility] RN sedation 11:02:57 Fentanyl I.V. 50 Brad Zelayaie for mcg [place] Lacy RN sedation Procedure Log Time Note 10::23 Informed consent obtained and on chart 10:23:11 Indication : Unstable angina 10:23:18 Marissa Cohn RT(R) sent for patient. Start room use. 10:23:21 Time tracking: Regular hours (M-F 7:00 - 5:00) 10:23:25 Procedure Status Urgent Heart Cath (IP). 10:23:34 Plan of Care:Hemodynamics will remain stable., Cardiac rhythm will remain stable., Comfort level will be maintained., Respiratory function will remain adequate., Patient/ family verbilizes understanding of procedure., Procedure tolerated without complication., Recovers from procedure without complications.. 10:24:31 Lab Result : BUN 21 mg/dl 10::31 Lab Result : Hemoglobin 9.7 g/dl 10::31 Lab Result : Hematocrit 31.2 % 10::31 Lab Result : eGFR NONAFRICAN 61.20613 ml/min 10::31 Lab Result : Creatinine 1 mg/dl 10::31 Lab Result : CK-MB 3.4 ng/ml 10:24:31 Lab Result : Troponin l 0.026 ng/ml 10:25:12 Patient allergic to Other allergyTOMATOES,PROVACAL/OXYCODONE/PCN SEE CHART 10:25:28 H&P Date Dictated: 03/22/2020 Within 30 days and on chart., ER History on chart.. 10:25:43 Arrival Date: 03/22/2020 12:00:00 AM 10:25:51 Patient Height : 66.14 inches 10:25:57 Patient Weight : 163.14 lbs 10:32:05 Patient received from Med II to CCL 1 Alert and oriented. Tansferred to table in Supine position. 10:32:14 Warm blankets applied, and ridge hugger turned on for patient comfort. 10:32:14 Correct patient and procedure confirmed by team. 10:32:15 ECG and BP/O2 sat monitors applied to patient. 10:40:39 Pre-procedure instructions explained to patient. 10:40:39 Pre-op teaching completed and patient verbalized understanding. 10:40:43 Family in patients room. 10:40:44 Patient NPO since Midnight. 10:40:47 Is patient on blood thinner?Yes 10:40:49 ACC The patient was administered the following blood thiners within the last 24 hours: ACCPlavix 10:40:55 Patient diabetic? No. 10:41:06 Patient not . Patient has had hysterectomy. 10:41:08 Previous problem with sedation/anesthesia? No ? 10:41:11 Snore? Yes 10:41:13 Sleep apnea? No 10:41:14 Deviated septum? No 10:41:14 Opens mouth fully? Yes 10:41:19 Airway obstruction? Yes COPD, ASTHMA 10:41:21 Sticks out tongue? Yes 10:41:25 Dentures? No ? 10:41:28 Pre procedure: right dorsailis pedis pulse 1+ Palpable, but thready & weak; easily obliterated 10:41:30 Patient pain scale 0/10 ?. 10:41:38 IV patent on arrival in left antecubital with 0.9% NaCl at [facility]. 10:41:41 Lab results completed and on chart. 10:41:45 Right groin area was prepped with chlora-prep and draped in sterile fashion 10:41:46 Alarms reviewed by R. N. 10:41:46 Sharps counted by scrub and verified by R.N. 10:41:56 Vital chart was started 10:41:59 Baseline sample Acquired. 10:42:04 Rhythm: sinus rhythm 10:42:06 Full Disclosure recording started 10:42:11 Is the patient allergic to Iodine/contrast media? No. 10:43:03 Oxygen 3 l/min etCO2 Nasal cannula was administered by Ceasar Lacy RN; used for procedure; Verbal order read back and verified. 10:43:11 Lidocaine 2% 20ml vial added to field was administered by Brad Sesay MD; for local anesthetic; Verbal order read back and verified. 10:43:30 0.9% NaCl 100 ml/hr I.V. was administered by Ceasar Lacy RN; Per physician; Verbal order read back and verified. 10:44:26 Heparin Flush Bag (1000units/500ml NS) 2 bags added to field was administered by Brad Sesay MD; used for procedure; Verbal order read back and verified. 10:45:01 Use device set Femoral Dx 10:45:03 ACIST Syringe (49049) opened to sterile field. 10:45:04 Bag Decanter (2002S) opened to sterile field. 10:45:04 Medline Cath Pack ([id number]) opened to sterile field. 10:45:07 ACIST Hand Control (61691) opened to sterile field. 10:45:08 ACIST Manifold (42852) opened to sterile field. 10:45:09 DIAGNOSTIC Multipack 5Fr catheter set (CV7608) opened to sterile field. 10:45:09 Tegaderm 4 x 4 (1626W) opened to sterile field. 10:45:11 EXOSEAL 5Fr (EX500) opened to sterile field. 10:45:11 SHEATH 5FR [place] (FUM186) opened to sterile field. 10:45:12 EMERALD Guide Wire (502-681) opened to sterile field. 10:47:24 SHEATH 7FR [place] (TBN384) opened to sterile field. 10:54:27 Risk of Mortality: 0.3 10:54:31 Risk of blood transfusion: 8.4 10:54:36 Risk of KRZYSZTOF: 3.1 10:54:43 Physician arrived 10:54:44 --------ALL STOP TIME OUT------ 10:54:45 Final Timeout: patient, procedure, and site verified with staff and physician. All members of the team are in agreement. 10:54:48 Right groin site verified by team. 10:55:00 Fire Safety Assessment: A--An alcohol-based skin anteseptic being used preoperatively., C--Open oxygen or nitrous oxide is being used., D--An ESU, laser, or fiber-optic light is being used. 10:55:11 Physical assessment completed. ASA score P 2 - A patient with mild systemic disease as per Brad Sesay MD. 10:55:18 2) 60-89 Mildly reduced kidney function, and other findings (as for stage 1) point to kidney disease. 10:55:31 Maximum allowable contrast dose (3.7 X eGFR X 0.75)169 ml. 10:55:36 Sedation plan: IV Moderate Sedation Medication:Versed, Fentanyl 10:56:25 Zero performed for pressure channel P1 10:56:48 Zero performed for pressure channel P1 10:57:07 Zero performed for pressure channel P1 10:57:27 Versed 1 mg I.V. was administered by Ceasar Lacy RN; for sedation; Verbal order read back and verified. 10:57:36 Fentanyl 50 mcg I.V. was administered by Ceasar Lacy RN; for sedation; Verbal order read back and verified. 10:58:08 pt with head of bed at 30 degrees due to tracheal collapse per pt report. 11:01:03 Procedure started. 11:01:30 Local anesthetic to right femoral artery with Lidocaine 2% by Brad Sesay MD.INITIAL ACCESS ONLY 11:01:40 Local anesthetic to right femoral vein with Lidocaine 2% by Brad Sesay MD.ADDITIONAL ACCESS 11:02:16 A 5 Fr sheath was inserted into the Right Femoral artery 11:02:38 A 7 Fr Short sheath was inserted into the Right Femoral vein 11:02:54 Versed 1 mg I.V. was administered by Ceasar Lacy RN; for sedation; Verbal order read back and verified. 11:02:57 Fentanyl 50 mcg I.V. was administered by Ceasar Lacy RN; for sedation; Verbal order read back and verified. 11:06:16 A SWAN 7Fr Thermodilution cather (131F7P) was advanced over the wire and used for Procedure. 11:10:25 Loving-Mariella "C" tip catheter inserted 11:10:27 Right heart pressures obtained. 11:10:29 Loving-Mariella removed. 11:10:51 A MULTIPACK JL 4.0 5Fr catheter was advanced over the wire and used for Left Coronary Angiography. 11:13:58 LCA angiography performed. 11:14:02 Injector settings: Ml/sec: 3, Volume: 6, 11:15:54 Catheter removed. 11:16:11 A MULTIPACK 3DRC 5Fr catheter was advanced over the wire and used for Right Coronary Angiography. 11:16:52 RCA angiography performed. 11:16:59 Injector settings: Ml/sec: 3, Volume: 6, 11:17:16 Catheter removed. 11:17:25 A MULTIPACK Pigtail 5 Fr catheter was advanced over the wire and used for LV Angiography. 11:17:35 Injector settings: Ml/sec: 5, Volume: 15, 11:18:35 LV gram done using GRACE 11:19:33 EF : 20 % 11:19:46 LV hemodynamics recorded. 11:20:20 A SECOND INJECTION IS MADE IN THE LV TO VISUALIZE THE VALVES. 11:20:23 Catheter removed. 11:20:37 EXOSEAL 5Fr (EX500) opened to sterile field. 11:21:06 Sheath removed intact; hemostasis achieved with Manual Compression to the Right Femoral vein. 11:21:23 Sheath removed intact; hemostasis achieved with Exoseal to the Right Femoral artery. 11:21:28 Procedure ended.(Physican Out) 11:22:26 Contrast amount:Isovue 300 82ml. 11:22:38 Fluoroscopy time 01.80 minutes. 11:22:44 Flurop Dose total: 838 11:22:44 Fluoroscopy dose: 838 mGy 11:22:52 Dose Area Product 17082 mGy/cm. 11:22:56 Maximum allowable dose exceeded? No. 11:22:59 Sharps counted by scrub and verified by R.N. 11:23:12 Insertion/operative site no bleeding no hematoma. 11:23:18 Post-op/insertion site Right Femoral artery dressed using a 4 x 4 and Tegaderm. 11:23:26 Post left femoral vein:stable 11:23:32 Post right femoral artery:stable 11:23:38 Post-procedure physical assessment completed. ASA score P 2 - A patient with mild systemic disease as per Brad Sesay MD. 11:23:43 Post procedure rhythm: unchanged. 11:23:47 Estimated blood loss: 5 ml 11:23:49 Post procedure instruction explained to patient.Patient verbalizes understanding. 11:23:50 Patient needs reinforcement of post procedure teaching. 11:24:50 Procedure type changed to Cath procedure, Diagnostic procedure, Right Heart, RHC and LHC w/Coronaries, Sedation Charges, Moderate Sedation up to 30 minutes 11:25:51 Procedure and supply charges have been captured, reviewed, submitted and are correct. 11:28:12 Procedure Complication : No complications 11:28:15 Vital chart was stopped 11:28:23 [facility] Findings: mild to moderate CAD (<70%) 11:28:27 Operative report dictated upon procedure completion. 11:28:28 See physician's report for complete and final results. 11:28:31 Report given to Med II. 11:28:43 Patient transfered to [facility] II with Bed. 11:28:47 Procedure ended. 11:28:47 Full Disclosure recording stopped 11:28:58 End room use (Document Last) Device Usage Item Name Manufacture Quantity Catalog Hospital Part Current Minima l Lot# / Number Charge Number Stock Stock Serial# Code ACIST Syringe Acist 1 82342 659046 722321 [id number] 20 (93032) Medical Systems Inc Bag Decanter Microtek 1 2001S 700286 23769 707024 5 (2001S) Medical Inc. Medline Cath Medline 1 [id number] 988001 39234 213214 5 Pack ([id number]) ACIST Hand Acist 1 42519 746173 814460 497649 5 Control Medical (03856) Systems Inc ACIST Manifold Acist 1 21677 724560 052126 801208 5 (53432) Medical Systems Inc DIAGNOSTIC Cardinal 1 DD9476 245381 98203 983288 30 Multipack 5Fr Health catheter set (AU8147) Tegaderm 4 x 4 3M 1 1626W 842251 977606 049809 5 (1626W) EXOSEAL 5Fr Cardinal 2 EX500 010005 557725 662326 10 (EX500) Health SHEATH 5FR Terumo 1 VYC375 089019 854517 916988 5 [place] (WHI857) EMERALD Guide Cardinal 1 502-455 836593 728479 887822 5 Wire (502-455) Health SHEATH 7FR Terumo 1 PKR940 338100 698396 912046 5 [place] (IWU335) SWAN 7Fr Ortega 1 131F7P 065597 33703 185342 3 Thermodilution Lifesciences cather (131F7P) MULTIPACK JL Cardinal 1 143175 5 4.0 5Fr Health catheter MULTIPACK 3DRC Cardinal 1 933119 5 5Fr catheter Health MULTIPACK Cardinal 1 264577 5 Pigtail 5 Fr Health catheter Signature Audit [place] Stage Time Signature Unsigned Intra-Procedure 03/22/2020 Mena 11:29:20 AM Aleshia RT(R) (CV) Intra-Procedure 03/22/2020 Ceasar Lacy RN 11:29:57 AM Intra-Procedure 03/22/[address] 11:30:22 AM Vin [place] [id number] [facility] [place] [address]
--- NOTE | ~2020-03-21 | OP ---
PATIENT NAME: ROBYN MENJIVAR MEDICAL RECORD: [id number] :65 LOCATION:D.M2 D.5 ADMISSION DATE:03/22/20 SURGEON: NOEMY HAMMONDS MD DATE OF OPERATION: 03/22/2020 PROCEDURE: Left heart catheterization plus right heart catheterization, right femoral vein artery approach respectively. CATHETERS: A 5-Peruvian sheath on the arterial side and 7-Peruvian sheath on the venous side as well as [place]-Mariella catheter. The procedure was well tolerated. The patient returned to perez, sheath removed. Manual pressure and ExoSeal device placed. FINDINGS: Left ventriculography, 30-degree GRACE view shows severe global hypokinesis, reduced EF 20%. The LV is dilated and moderate at most MR. CORONARY ANATOMY: LEFT MAIN: Left main is free of disease. LAD: Occluded as described previously. However, fills via right to left collaterals. CIRCUMFLEX: Circumflex free of disease. RIGHT CORONARY ARTERY: Widely patent. Right heart catheterization: The right heart [place]-Mariella catheter was passed to the pulmonary artery into the pulmonary capillary, wedge pressure was obtained and pressures were obtained in a drawback fashion. Pulmonary capillary wedge pressure shows a mean of 55, PA pressure is 90/50, RV pressures are 85 to 90 over 20. RA pressure is 25. IMPRESSION: This is consistent with severe cardiomyopathy. Suspect the mitral regurgitation is secondary to the cardiomyopathy itself. Not a primary process. No benefit mitral valve surgery at this point, no indication for revascularization. Medical treatment for cardiomyopathy at this point. TRANSINT:[id number] Voice Confirmation ID: [id number] DOCUMENT ID: [id number] NOEMY HAMMONDS MD CC: [id number] DICTATION DATE: 03/22/20 1144 FORM GRADER OPERATOR: 03/22/202134 ADM IN [facility] [address] [place] [address]
[~2020-03-21 21:11] MED LIST changes: +CARAFATE1 G PO; +FLUTICASONE PRO16 GM NASAL; +HYDROCODON-ACE1 EA10 PO; +MUCINEX DM ER1 EAC1 PO; +PROAIR HFA8.5 G1 INH; +PROVENTIL/2.5 MG/3 M INH; +SINGULAIR10 MG PO; +SYNTHROID50 MCG PO; +TESSALON PERLE100 MG PO
[2020-03-21 21:59] LABS: BASOPHILS 0.3 % (0-2); EOSINOPHILS 3.6 % (0-7); HEMATOCRIT 32.4 % (36.0-48.0); HEMOGLOBIN 10.2 g/dL (12-16); IMMATURE GRANULOCYTES 0.1 % (0-5); LYMPHOCYTES 23.2 % (15-50); MCH 26.3 pg (26.0-34.0); MCHC 31.5 g/dL (31.0-37.0); MCV 83.5 fL (80.0-100.0); MEAN PLATELET VOLUME 10.3 fL (7.4-10.4); MONOCYTES 3.7 % (2-11); NEUTROPHILS 69.1 % (40-80); RBC 3.88 10x6/uL (4.00-5.40); WBC 7.3 10x3/uL (4.8-10.8)
[2020-03-21 22:05] LABS: APTT 31.8 SECONDS (22.8-39.4); INR 1.02 (0.85-1.17); PROTIME 13.3 SECONDS (11.6-15.0)
[2020-03-21 22:13] LABS: CALC OSMOLALITY 282 mosm/kg (275-300); CALCIUM 8.7 mg/dL (8.5-10.1); CARBON DIOXIDE 28.4 mmol/L (21.0-32.0); CHLORIDE - SERUM 105 mmol/L (98-107); PLATELET COUNT 152 10x3/uL (130-400); POTASSIUM - SERUM 3.9 mmol/L (3.5-5.1); SODIUM 140 mmol/L (136-145); UREA NITROGEN 21 mg/dL (7-18); eGFR NON AFRICAN AMERICAN 61 mL/min (90-120)
[2020-03-21 22:15] LABS: GLUCOSE 125 mg/dL (74-106)
[2020-03-21 22:28] LABS: ALBUMIN 3.1 g/dL (3.4-5.0); ALKALINE PHOSPHATASE 220 U/L (30-120); ALT (SGPT) 76 U/L (10-68); CKMB 3.9 U/L (0.0-3.6); CREATINE KINASE 76 UL (21-215); MAGNESIUM - SERUM 1.7 mg/dL (1.8-2.4); PROTEIN - SERUM 7.4 g/dL (6.4-8.2); TROPONIN-I 0.027 ng/mL (0.000-0.060)
[2020-03-21 22:34] LABS: BACTERIA FEW /hpf (NEGATIVE); BILIRUBIN NEGATIVE (NEGATIVE); EPITHELIAL CELLS 0-5 /hpf (0-5); GLUCOSE NEGATIVE (NEGATIVE); KETONE NEGATIVE (NEGATIVE); NITRITE NEGATIVE (NEGATIVE); RED CELLS - URINE NONE SEEN /hpf (0-5); UROBILINOGEN NORMAL (NORMAL); WHITE CELLS - URINE 0-5 /hpf (NEGATIVE)
[2020-03-21 23:38] VITALS: BP 146/100
--- NOTE | 2020-03-22 01:18 | NUR ---
PT ARRIVED TO FLOOR, ROOM 2115, AT 0020. ALERT/ORIENTED. ABLE TO WALK FROM STRETCHER TO BED AND THEN BATHROOM INDEPENDENTLY. PIV TO LFA SALINE LOCKED. WEARING O2 @ 3L/NC WITH MILD SOB SHE WALKED AROUND ROOM. ADMISSION HISTORY AND ASSESSMENT COMPLETED. HOME MEDS REVIEWED AND UPDATED. INSTRUCTED ON NPO UNTIL SEEN BY ASSOCIATE ARTISTIC DIRECTOR IN AM. CALL LIGHT IN REACH. PLAN OF CARE INITIATED.
[2020-03-22 01:31] VITALS: BP 135/100; Ht 167.6 cm; Wt 90.2 kg
[2020-03-22 04:00] VITALS: BP 114/78
[2020-03-22 05:24] LABS: BASOPHILS 0.2 % (0-2); EOSINOPHILS 2.9 % (0-7); HEMATOCRIT 31.2 % (36.0-48.0); HEMOGLOBIN 9.7 g/dL (12-16); IMMATURE GRANULOCYTES 0.2 % (0-5); LYMPHOCYTES 20.2 % (15-50); MCH 26.1 pg (26.0-34.0); MCHC 31.1 g/dL (31.0-37.0); MCV 83.9 fL (80.0-100.0); MONOCYTES 5.7 % (2-11); NEUTROPHILS 70.8 % (40-80); PLATELET COUNT 143 10x3/uL (130-400); RBC 3.72 10x6/uL (4.00-5.40); RDW 17.2 % (11.5-14.5); WBC 6.5 10x3/uL (4.8-10.8)
[2020-03-22 05:44] LABS: CALCIUM 8.5 mg/dL (8.5-10.1); CARBON DIOXIDE 29.1 mmol/L (21.0-32.0); CHLORIDE - SERUM 104 mmol/L (98-107); CHOL - HDL RATIO 3.1 ratio (2.3-4.1); CHOLESTEROL, TOTAL 119 mg/dL (0-200); CKMB 3.4 U/L (0.0-3.6); CREATINE KINASE 60 UL (21-215); HDL CHOLESTEROL 38 mg/dL (32-96); LDL CHOLESTEROL 72 mg/dL (0-100); LDL-HDL RATIO 1.9 ratio (1.5-3.5); MAGNESIUM - SERUM 1.7 mg/dL (1.8-2.4); PHOSPHOROUS 4.5 mg/dL (2.5-4.9); SODIUM 139 mmol/L (136-145); THYROID STIMULATING HORMONE 5.95 uIU/mL (0.36-3.74); TRIGLYCERIDE 48 mg/dL (30-200); TROPONIN-I 0.026 ng/mL (0.000-0.060); UREA NITROGEN 21 mg/dL (7-18); eGFR NON AFRICAN AMERICAN 61 mL/min (90-120)
[2020-03-22 05:48] LABS: CALC OSMOLALITY 285 mosm/kg (275-300); GLUCOSE 180 mg/dL (74-106)
[2020-03-22 05:49] LABS: VALPROIC ACID (DEPAKOTE) < 3.0 ug/mL (50.0-100.0)
--- NOTE | 2020-03-22 06:49 | NUR ---
NO TX GIVEN PT HAVING CHEST PAIN
[2020-03-22 08:00] VITALS: BP 119/87
[2020-03-22 10:00] LABS: CHOL - HDL RATIO 3.2 ratio (2.3-4.1); LDL-HDL RATIO 1.9 ratio (1.5-3.5)
--- NOTE | 2020-03-22 11:36 | NUR ---
RECEIVED PT BACK FROM SPACE OFFICER VSS PPP X4 RT ELVIA WITH CHITO C/D/I WILL CONTINUE TO MONITOR PT REFUSES MEDS AT THIS TIME
--- NOTE | 2020-03-22 12:49 | MORECARE ---
CASE MANAGEMENT DISCHARGE SUMMARY PATIENT: ROBYN MENJIVAR UNIT: [id number] ADM DATE: 03/21/20 AGE: 54 : 65 SEX: F ROOM/BED: D.2115 AUTHOR: SHANIQUE VEGA PHYSICIAN: REFERRING PHYSICIAN: TOMAS BOYER MD DATE OF SERVICE: 03/22/20 Discharge Plan Patient Name: ROBYN MENJIVAR Facility: [facility]:[place] : 1965 Planned Disposition: Home Anticipated Discharge Date: Discharge Date: Expected LOS: 0 Initial Reviewer: [email or web address] Initial Review Date: 03/22/2020 Generated: 03/22/20 1:49 pm Patient Name: ROBYN MENJIVAR Page 38033 at 1249 All edits/amendments must be made on the electronic document DICTATION DATE: 03/22/20 1249 SUPERVISOR WATERWORKS: MONO 03/22/20 1249 RPT#: [id number] DC DATE: STATUS: ADM IN [facility] [address] [place] [address] END OF REPORT
--- NOTE | 2020-03-22 14:30 | NUR ---
PT SLEEPING AROUSES EASILY REFUSES TO TAKE MEDS AT THIS TIME STATES SHE WILL TAKE WITH SUPPER
[2020-03-22 15:00] VITALS: BP 119/83
--- NOTE | 2020-03-22 16:00 | NUR ---
PT TOOK MEDS HELD CHRISTOFER[facility]O WILL TAKE A NIGHT DOSE AGAIN THIS EVENING
--- NOTE | 2020-03-22 17:22 | MORECARE ---
CASE MANAGEMENT DISCHARGE SUMMARY PATIENT: ROBYN MENJIVAR UNIT: [id number] ADM DATE: 03/21/20 AGE: 54 : 65 SEX: F ROOM/BED: D.8715 AUTHOR: SHANIQUE VEGA PHYSICIAN: REFERRING PHYSICIAN: TOMAS BOYER MD DATE OF SERVICE: 03/22/20 Discharge Plan Patient Name: ROBYN MENJIVAR [facility] : 1965 Planned Disposition: Home Anticipated Discharge Date: Discharge Date: Expected LOS: 0 Initial Reviewer: [email or web address] Initial Review Date: 03/22/2020 Generated: 03/22/20 6:22 pm Last DP export: 03/22/20 11:49 am Patient Name: ROBYN MENJIVAR Page 32305 at 1722 All edits/amendments must be made on the electronic document DICTATION DATE: 03/22/201721 HEALTH PRACTICE MANAGER: MONO 03/22/201721 RPT#: [id number] DC DATE: STATUS: ADM IN [facility] [address] [place] [address] END OF REPORT
--- NOTE | 2020-03-22 19:00 | NUR ---
EVENING ROUNDS COMPLETE. PT LAYING IN BED. NO SIGNS OF DISTRESS. PT DENIES ANY NEEDS AT THIS TIME. CL IN REACH, BED IN LOWEST POSITION.
[2020-03-22 20:00] VITALS: BP 99/62
[2020-03-23 00:59] VITALS: BP 110/77
[2020-03-23 05:08] LABS: BASOPHILS 0.2 % (0-2); HEMATOCRIT 32.6 % (36.0-48.0); HEMOGLOBIN 10.2 g/dL (12-16); IMMATURE GRANULOCYTES 0.2 % (0-5); LYMPHOCYTES 39.3 % (15-50); MCH 26.7 pg (26.0-34.0); MCHC 31.3 g/dL (31.0-37.0); MCV 85.3 fL (80.0-100.0); MEAN PLATELET VOLUME 10.6 fL (7.4-10.4); MONOCYTES 5.9 % (2-11); NEUTROPHILS 49.4 % (40-80); RBC 3.82 10x6/uL (4.00-5.40); RDW 17.3 % (11.5-14.5)
[2020-03-23 05:11] VITALS: BP 124/83
[2020-03-23 05:13] LABS: PLATELET COUNT 109 10x3/uL (130-400); WBC 4.6 10x3/uL (4.8-10.8)
[2020-03-23 05:20] LABS: ANION GAP 7.1 mmol/L (8-16); CALCIUM 8.6 mg/dL (8.5-10.1); CREATININE - SERUM 1.2 mg/dL (0.6-1.3); MAGNESIUM - SERUM 1.7 mg/dL (1.8-2.4); PHOSPHOROUS 4.2 mg/dL (2.5-4.9); POTASSIUM - SERUM 4.1 mmol/L (3.5-5.1)
[2020-03-23 08:00] VITALS: BP 113/80
[2020-03-23 10:49] LABS: UDS - AMPHET NEGATIVE QUAL (NEGATIVE); UDS - BARB NEGATIVE QUAL (NEGATIVE); UDS - BENZO POSITIVE QUAL (NEGATIVE); UDS - COCAINE NEGATIVE QUAL (NEGATIVE); UDS - OPIATE POSITIVE QUAL (NEGATIVE); UDS - PCP NEGATIVE QUAL (NEGATIVE); UDS - THC NEGATIVE QUAL (NEGATIVE)
[2020-03-23 11:00] VITALS: BP 84/56
[2020-03-23] MEDS ORDERED: ALDACTONE25 MG PO (12:17)
[2020-03-23] MEDS ORDERED: ENTRESTO 24 MG1 EACH PO (12:17)
--- NOTE | 2020-03-23 15:28 | NUR ---
IV AND TELEMETRY DCD. DC PLANS GIVEN. UNDERSTANDING VOICED. ESCORTED TO CAR BY W/C.
--- NOTE | 2020-03-23 15:32 | NUR ---
02 DELIVERED. SCAT BUS HERE.
--- NOTE | 2020-03-23 16:04 | MORECARE ---
CASE MANAGEMENT DISCHARGE SUMMARY PATIENT: ROBYN MENJIVAR UNIT: [id number] ADM DATE: 03/22/20 AGE: 54 : 65 SEX: F ROOM/BED: D.7493 AUTHOR: SHANIQUE VEGA PHYSICIAN: REFERRING PHYSICIAN: TOMAS BOYER MD DATE OF SERVICE: 03/23/20 Discharge Plan Patient Name: ROBYN MENJIVAR [facility] : 1965 Planned Disposition: Home Anticipated Discharge Date: Discharge Date: 03/23/2020 Expected LOS: 0 Initial Reviewer: [email or web address] Initial Review Date: 03/22/2020 Generated: 03/23/20 5:03 pm External Providers External Provider: [facility] Next Contact Date: Service Request Date: Service Type: Resolution: Reviewer: Comments: Last DP export: 03/22/20 4:22 pm Patient Name: ROBYN MENJIVAR Page 59960 at 1604 All edits/amendments must be made on the electronic document DICTATION DATE: 03/23/20 160 CARDIAC CATH LAB TECHNOLOGIST: MONO 03/23/20 160 RPT#: [id number] DC DATE:03/23/20 STATUS: DIS IN [facility] [address] [place] [address] END OF REPORT
--- NOTE | 2020-03-23 17:28 | NUR ---
PATIENT SPOUSE TO CALL AND STATE THAT HE NEEDS A SCRIPT FOR HER PAIN MEDICATION (NORCO). HE STATES THAT SHE HAS BEEN OUT OF HER ANTI-PYSCOTIC MEDS AND PAIN MEDS FOR A WEEK. STATES THAT THEY HAD A SCRIPT A YEAR AGO FROM [place] AND HAD REFILLS. I ASKED THAT HE CALL DR BOYER OFFICE IN THE AM AND ASK THEM FOR SOME GUIDANCE OF GETTING IN TO SEE UZIEL OR FOR ESTABLISHMENT FOR MEDICATIONS. HE THANKED ME FOR THIS.
--- NOTE | 2020-03-23 18:03 | MORECARE ---
CASE MANAGEMENT DISCHARGE SUMMARY PATIENT: ROBYN MENJIVAR UNIT: [id number] ADM DATE: 03/22/20 AGE: 54 : 65 SEX: F ROOM/BED: D.4993 AUTHOR: SHANIQUE VEGA PHYSICIAN: REFERRING PHYSICIAN: TOMAS BOYER MD DATE OF SERVICE: 03/23/20 Discharge Plan Patient Name: ROBYN MENJIVAR Facility: [facility]:[place] : 1965 Planned Disposition: Home Anticipated Discharge Date: 03/23/20 Discharge Date: 03/23/2020 Expected LOS: 1 Initial Reviewer: [email or web address] Initial Review Date: 03/22/2020 Generated: 03/23/20 7:02 pm Last DP export: 03/23/20 3:04 pm Patient Name: ROBYN MENJIVAR Page 29719 at 1803 All edits/amendments must be made on the electronic document DICTATION DATE: 03/23/201801 FLUORESCENT SOLUTION MIXER: MONO 03/23/201801 RPT#: [id number] DC DATE:03/23/20 STATUS: DIS IN [facility] [address] [place] [address] END OF REPORT
--- NOTE | 2020-03-24 16:25 | NUR ---
SPOUSE TO CALL BACK AGAIN AND STATES THAT "REED CASTRO IS NOT [facility] AP[facility] FOR HER 4 PRESCRIPTIONS - HE IS ADAMENT THAT WE CALL HER PAIN MEDICATION IN AND STATES, "MEDICAID SAID THAT ANY DOCTOR FROM [place] CAN CALL THESE IN WITH A HUNTER NUMBER" I CALLED Erum DIEGO APN AND PASSED THIS INFORMATION TO HER. SHE STATES THAT SHE WILL CALL THE SPOUSE AND TALK TO HIM. I GAVE HER THE ONLY PHONE NUMBER FROM THE FACESHEET.
--- NOTE | 2020-03-25 14:53 | MORECARE ---
CASE MANAGEMENT DISCHARGE SUMMARY PATIENT: ROBYN MENJIVAR UNIT: [id number] ADM DATE: 03/22/20 AGE: 54 : 65 SEX: F ROOM/BED: D.7074 AUTHOR: SHANIQUE VEGA PHYSICIAN: REFERRING PHYSICIAN: TOMAS BOYER MD DATE OF SERVICE: 03/25/20 Discharge Plan Patient Name: ROBYN MENJIVAR Facility: [facility]:[place] : 1965 Planned Disposition: Home Anticipated Discharge Date: 03/23/20 Discharge Date: 03/23/2020 Expected LOS: 1 Initial Reviewer: [email or web address] Initial Review Date: 03/22/2020 Generated: 03/25/20 3:52 pm Comments DCP- Discharge Planning Updated by [email or web address]: Adali Welsh on 03/25/20 1:[address] CM met with patient to discuss initial discharge planning. Patient is in agreement to proceed with the assessment. Patient reports that she lives at home independently with her , Vin Menjivar ([phone])and friend. Patient is alert/oriented. Stairs/steps: 2. PCP: Dr. Charles. Pharmacy: [facility]. Patient states she has been able to obtain all of her prescribed medications. HHS: Request [facility]. Arranged HHS with Amrissa. DME: O2, bipap, walker, shower chair, hand rail. Patient gives permission to speak with family members/care givers. Emergency contact: Patient is Independent with all ADL's, medication management SECURITY BUSINESS ANALYST. CM discussed the availability of HH, Rehab, SNF, OP Therapy, DME services. Patient denies the need for additional services at this time and feels safe returning to previous environment. Patient denies hospitalization within the past 30 days. Patient denies the use of community resources SECURITY BUSINESS ANALYST. Transportation at time of discharge: spouse. Last DP export: 03/23/20 5:03 pm Patient Name: ROBYN MENJIVAR Page [id number] at [id number] All edits/amendments must be made on the electronic document DICTATION DATE: 03/25/20 145 ENVIRONMENTAL AIDE: MONO 03/25/20 145 RPT#: [id number] DC DATE:03/23/20 STATUS: DIS IN [facility] [address] [facility] [place] [address] END OF REPORT
== END 2020-03-23 15:33 | disposition home or self-care (01) | DRG 286 ==
LOC: D.ER 21:11 → D.M2 23:16 → OBSVTIME 03-22 00:20 → D.M2 03-22 17:20
PROVIDERS: Emergency Medicine; Family Medicine; Internal Medicine Interventional Cardiology; ADMIT Emergency Medicine; ATTEND Emergency Medicine
PROC: 4A023N7 Measurement of Cardiac Sampling and Pressure, Left Heart, Percutaneous Approach (ICD-10-PCS; 2020-03-22)
PROC: B2161ZZ Fluoroscopy of Right and Left Heart using Low Osmolar Contrast (ICD-10-PCS; principal; 2020-03-22 10:23)
PROC: B2111ZZ Fluoroscopy of Multiple Coronary Arteries using Low Osmolar Contrast (ICD-10-PCS; 2020-03-22 10:23)
DX: I25.110 Atherosclerotic heart disease of native coronary artery with unstable angina pectoris (principal); I50.23 Acute on chronic systolic (congestive) heart failure; N39.0 Urinary tract infection, site not specified; I24.9 Acute ischemic heart disease, unspecified; I11.0 Hypertensive heart disease with heart failure; E83.42 Hypomagnesemia; D64.9 Anemia, unspecified; J44.9 Chronic obstructive pulmonary disease, unspecified; E03.9 Hypothyroidism, unspecified; E78.5 Hyperlipidemia, unspecified; F31.9 Bipolar disorder, unspecified; F43.10 Post-traumatic stress disorder, unspecified; Z85.41 Personal history of malignant neoplasm of cervix uteri; Z85.43 Personal history of malignant neoplasm of ovary; Z85.3 Personal history of malignant neoplasm of breast; I34.0 Nonrheumatic mitral (valve) insufficiency